=== PATIENT | male | born 1945 | race Caucasian/White ===

== ENCOUNTER → 2017-12-04 00:58 | Outpatient (CLI) | payer MEDICARE, BC, SELFPAY ==
[2017-12-04 11:48] LABS: Prothrombin Time 19.3 sec (9.3-10.8)
== END ==
PROVIDERS: PCP Emergency Medicine; Visit Provider Emergency Medicine
DX: I48.0 Paroxysmal atrial fibrillation (principal); Z79.01 Long term (current) use of anticoagulants
CPT/HCPCS: 36415; 85610

== ENCOUNTER → 2017-12-06 00:44 | Outpatient (CLI) | payer MEDICARE, BC, SELFPAY ==
[2017-12-06 12:06] LABS: Prothrombin Time 22.2 sec (9.3-10.8)
[2017-12-06 12:08] LABS: INR 2.3 (1.0-3.5)
== END ==
PROVIDERS: PCP Emergency Medicine; Visit Provider Emergency Medicine
DX: I48.0 Paroxysmal atrial fibrillation (principal); Z79.01 Long term (current) use of anticoagulants
CPT/HCPCS: 36415; 85610

== ENCOUNTER → 2017-12-06 07:56 | Outpatient (REF) | payer SELFPAY ==
[2017-12-06 08:26] LABS: Abs Immature Grans 0.02 k/cumm (0.0-0.09); Absolute Basophil Count 0.04 k/cumm (0.0-0.2); Absolute Eosinophil Count 0.53 k/cumm (0.0-0.7); Absolute Lymphocyte Count 0.52 k/cumm (1.2-3.4); Absolute Monocyte Count 0.58 k/cumm (0.11-0.7); Absolute Neutrophil Count 5.66 k/cumm (1.2-6.7); Basophils % 0.5; Eosinophils % 7.2; HCT 29.5 % (40.0-50.0); HGB 8.8 g/dL (13.5-17.5); Immature Grans % 0.3; Lymphocytes % 7.1; Mean Corp. HGB Concentration 29.8 g/dL (32.0-36.0); Mean Corpuscular Hemoglobin 29.8 pg (27.0-33.0); Monocytes % 7.9; Platelet Count 234 x1000/uL (130-400); RBC 2.95 m/cumm (4.50-6.00); RBC Distribution Width 17.7 % (11.8-14.1); White Blood Cell Count 7.35 k/cumm (4.4-10.8)
[2017-12-06 08:32] LABS: Anion Gap 8.6 mmol/L (3-11); BUN 37 mg/dL (7-18); CO2 29.4 mmol/L (21.0-32.0); Calcium 7.8 mg/dL (8.5-10.1); Chloride 95 mmol/L (98-107); Estimated GFR 8.43 (mL/min/1.73m2); Glucose 114 mg/dL (70-100); Potassium 4.3 mmol/L (3.5-5.1); Sodium 133 mmol/L (136-145)
[2017-12-06 08:39] LABS: CREATININE 6.51 mg/dL (0.70-1.30)
== END ==
LOC: LBN 07:56
PROVIDERS: PCP Emergency Medicine; Visit Provider Internal Medicine Nephrology
DX: N18.6 End stage renal disease (principal)

== ENCOUNTER → 2017-12-18 03:06 | Outpatient (CLI) | payer MEDICARE, BC, SELFPAY ==
[2017-12-18 12:27] LABS: INR 2.6 (1.0-3.5); Prothrombin Time 24.4 sec (9.3-10.8)
== END ==
PROVIDERS: PCP Emergency Medicine; Visit Provider Emergency Medicine
DX: Z79.01 Long term (current) use of anticoagulants (principal); I25.10 Atherosclerotic heart disease of native coronary artery without angina pectoris
CPT/HCPCS: 36415; 85610

== ENCOUNTER 2018-01-03 11:26 | Emergency (ER) | payer MEDICARE, BC, SELFPAY ==
[2018-01-03 11:47] VITALS: BP 119/51; PULSE 81; RESP 18; TEMP 36.8; O2SAT 95
--- NOTE | 2018-01-03 11:48 | ED.GENADUL_ITS ---
Disposition Clinical Impression: Worried well, Evaluation by medical service required, Dialysis complication, anemia secondary to esrd, Anticoagulant long-term use Disposition: HOME Condition: Good Instructions: Anemia (ED) Additional Instructions: If you notice any worsening of your symptoms, or any new symptoms such as vomiting, diarrhea, fever, chills, dark or tarry stool, bleeding from your rectum or your urine, shortness of breath, chest pain, numbness, weakness, or fainting , please return immediately to the emergency department for reevaluation. Please follow up with your primary care provider as soon as possible for reassessment and reevaluation. As always, it was a pleasure participating in your medical care today. Referrals: Devin Willard DO [Primary Care Provider] - Medical Decision Making - Medical Decision Making This is a 72-year-old male with a past medical history of dialysis, cardiac disease, aortic valve replacement, Coumadin use, has been very resistant to Epogen and has had multiple transfusions throughout his life, the most recent being this past spring. He has also had multiple GI workups on an outpatient basis with no focal etiology for his recurrent anemia. Feel that it is most likely combination of his dialysis with his Coumadin use, as well as his poor bone marrow response. He presents today being sent by his PCP for transfusion. He had a hemoglobin allegedly less than 8, and a soft blood pressure during dialysis. They did give a slight increase in fluids for him. Patient does admit to some fatigue, but denies any other complaints at this time. He is on 2 L of home oxygen at all times, he is currently on this and saturating well. Patient appears clinically well, slightly pale, but no other significant abnormalities. Perform a Hemoccult, recheck his hemoglobin level, and type and cross the patient with transfusion anticipated. 1:16 PM Patient's laboratory workup demonstrates a hemoglobin of 8.9, which is certainly within acceptable limits. Most recent hemoglobin at [facility] upon discharge greater than 2 weeks ago was in the low nines. Around 9.4. This demonstrates no significant abnormality. The patient has been hemodynamically stable here, and has had no hypotension, no tachycardia, no lightheadedness. Bedside fecal occult was performed and shown to be positive however the stool was light brown in color, no evidence of melena. The patient has a clear history of heme positive stools throughout his time here. I see no signs of a significant or notable GI bleed. I discussed the vital signs, laboratory workup , and occult signs with Dr. Willard, and he too feels that the patient does not require any blood at this time. Patient will be discharged home with close follow-up with Dr. Willard. We did discuss red flags which to return immediately, and the patient understands. I have extensively reviewed the treatment plan and discharge instructions with the patient and their family. I have addressed all patient concerns at this time. The patient and family was made aware of what symptoms to monitor for that would warrant a return to the emergency department. Discussed the plan with the patient and family, they demonstrate verbal understanding and agreement with our assessment and plan at this time. History of Present Illness - General Chief complaint: GenMedical Stated complaint: PER DR WILLARD Time Seen by Provider: 01/03/18 11:38 - History of Present Illness Initial comments: This is a very pleasant 72-year-old male with a past medical history of aortic valve replacement, subsequent Coumadin use, and dialysis secondary to renal failure, as well as chronic anemia requiring over 12 transfusions, mostly every 2-3 months, and being historically difficult to crossmatch, pacemaker, cardiac disease. He also has a history of hypoxemia, and resistance to epogen, as well as a thorough workup from gastroenterology at [facility] multiple times most recent being this past spring with multiple colonoscopies and EGDs which is never demonstrated focal location for bleeding. He presents today after being sent by his primary care provider for anemia. Patient states that his hemoglobin was allegedly 8, and while at dialysis today he was noticed to have a soft blood pressure during dialysis which was concerning. They did not give any medication to the patient to artificially raise his blood pressure. Dr. Willard was told that he had a hemoglobin of 8, and so he was sent by his primary care provider Dr. Aleman to the ER for transfusion. The patient has no focal complaints. He does state that he has been slightly fatigued over the last few weeks, but denies any hematochezia, hematemesis, melena, acholic stool. He denies any cuts or bleeding. He states that this is how it always is, a hemoglobin just goes down on its own, and Dr. Aleman feels it is from dialysis. Patient does not have any other complaints at this time. Patient denies any IV or illicit drug use. He denies any pertinent family history. - Related Data Cyanocobalamin (Vitamin B-12) [Cyanocobalamin Injection] 1 ml IM DIRECTED #1 vial 09/08/12 Cinacalcet [Sensipar] 30 mg PO DIRECTED 02/07/16 Iron 18 mg IV INFUSION 02/07/16 Epoetin Howie [Epogen] 20,000 unit IJ given at dialysis vial 11/28/16 Atorvastatin Calcium 40 mg PO DAILY tab-cap 05/17/17 Clopidogrel [Plavix] 75 mg PO DAILY tab-cap 05/17/17 Warfarin Sodium 1 - 3 tab PO DAILY #100 tab-cap 07/31/17 Pantoprazole Sodium 40 mg PO BID #180 tab-cap 11/22/17 Metoprolol Succinate 25 mg PO BID #180 tab-cap 12/20/17 Nitroglycerin [Nitrostat] 1 tab SL PRN #25 tab.sl 12/20/17 Acetaminophen [Tylenol Extra Strength] 500 mg PO TID PRN 12/24/17 Folic Acid 1 mg PO DAILY tab-cap 01/01/18 Carvedilol 6.25 mg PO BID 01/03/18 Allergies Allergy/AdvReac Type Severity Reaction Status Date / Time Penicillins Allergy Unknown Unverified 01/03/18 12:15 Review of Systems Other: 10 point review of systems was performed, pertinent positives and negatives are noted in the history of present illness. Past Medical History - Past Medical History Medical history: AFIB, CAD, CHF, ESRD, GI bleed, hypertension, SVT Surgical history: angioplasty/stent, coronary bypass surgery, vascular surgery ( AV fistula), other (AVR) - Social History Alcohol use: rarely Drug use: none General Exam - Other Other exam information: 1.Const: Well-nourished, Well-developed, appearing stated age 2.Eyes: PERRL, no conjunctival injection, and symmetrical lids. Minimal conjunctival pallor 3.ENT: Atraumatic external nose and ears. Moist MM. Neck: Symmetric, trachea midline, No thyromegaly. 4.CVS: +S1/S2, No murmurs or gallops. Peripheral pulses 2+ and equal in all extremities. Brisk capillary refill in all extremities. Palpable pacemaker in right chest. No signs of infection. 5.RESP: Unlabored respiratory effort. Clear to auscultation bilaterally. No wheezes rales or rhonchi 6.GI: Soft, Nontender/Nondistended, No hepatosplenomegaly. No guarding or rebound. 7.MSK: Normocephalic/Atraumatic, Extremities w/o deformity or ttp No cyanosis or clubbing, Normal movement of all extremities. Palpable thrill noted in left arm fistula. 8.Skin: Warm, Dry. No rashes or lesions. 9.Neuro: filter tank tender helper II-XII grossly intact. Sensation grossly intact, no focal neurologic deficits. 10.Psych: (AAO) x3. Appropriate mood and affect
[2018-01-03 12:18] LABS: Abs Immature Grans 0.01 k/cumm (0.0-0.09); Absolute Basophil Count 0.04 k/cumm (0.0-0.2); Absolute Eosinophil Count 0.31 k/cumm (0.0-0.7); Absolute Lymphocyte Count 0.62 k/cumm (1.2-3.4); Absolute Monocyte Count 0.45 k/cumm (0.11-0.7); Absolute Neutrophil Count 4.18 k/cumm (1.2-6.7); Basophils % 0.7; Eosinophils % 5.5; HCT 31.1 % (40.0-50.0); HGB 8.9 g/dL (13.5-17.5); Immature Grans % 0.2; Lymphocytes % 11.1; Mean Corp. HGB Concentration 28.6 g/dL (32.0-36.0); Mean Corpuscular Hemoglobin 29.5 pg (27.0-33.0); Mean Platelet Volume 10.3 fL (8.0-11.0); Neutrophils % 74.5; Platelet Count 229 x1000/uL (130-400); RBC 3.02 m/cumm (4.50-6.00); RBC Distribution Width 20.8 % (11.8-14.1); White Blood Cell Count 5.61 k/cumm (4.4-10.8)
[2018-01-03 12:32] LABS: ALT 8 U/L (12-78); AST 13 U/L (15-37); Albumin 2.7 g/dL (3.4-5.0); Alkaline Phosphatase 130 U/L (46-116); Anion Gap 3.1 mmol/L (3-11); BUN 11 mg/dL (7-18); Bilirubin, Total 0.5 mg/dL (0.2-1.0); CO2 36.9 mmol/L (21.0-32.0); CREATININE 2.86 mg/dL (0.70-1.30); Calcium 8.2 mg/dL (8.5-10.1); Chloride 95 mmol/L (98-107); Estimated GFR 21.78 (mL/min/1.73m2); Glucose 84 mg/dL (70-100); Potassium 3.4 mmol/L (3.5-5.1); Sodium 135 mmol/L (136-145); Total Protein 7.6 g/dL (6.4-8.2)
[2018-01-03 12:35] LABS: PTT Activated 35.7 sec (21.0-31.4); Prothrombin Time 22.2 sec (9.3-10.8)
[2018-01-03 12:41] LABS: INR 2.3 (1.0-3.5)
[2018-01-03 13:05] VITALS: PULSE 79; RESP 23; O2SAT 97
[2018-01-03 13:10] VITALS: PULSE 78; RESP 25; O2SAT 91
[2018-01-03 13:16] VITALS: BP 124/55; PULSE 78; RESP 16; O2SAT 96
[2018-01-03 13:34] VITALS: TEMP 36.8
== END 2018-01-03 13:29 | disposition home or self-care (01) ==
LOC: ER 01-04 10:14
PROVIDERS: Emergency Provider Student in an Organized Health Care Education/Training Program; PCP Emergency Medicine
DX: T85.691A Other mechanical complication of intraperitoneal dialysis catheter, initial encounter (principal); N18.6 End stage renal disease; D63.1 Anemia in chronic kidney disease; I12.0 Hypertensive chronic kidney disease with stage 5 chronic kidney disease or end stage renal disease; Z99.2 Dependence on renal dialysis; Z71.1 Person with feared health complaint in whom no diagnosis is made; Z79.01 Long term (current) use of anticoagulants; I48.91 Unspecified atrial fibrillation
CPT/HCPCS: 36415; 80053; 86850; 86900; 86901; 99284; 82272; 85025; 85610; 85730

== ENCOUNTER 2018-01-31 08:44 | Outpatient (CLI) | payer MEDICARE, BC, SELFPAY ==
[2018-01-31 12:13] LABS: INR 1.7 (1.0-3.5); Prothrombin Time 16.1 sec (9.3-10.8)
== END 2018-01-31 09:04 ==
PROVIDERS: PCP Emergency Medicine; Visit Provider Emergency Medicine
DX: I25.10 Atherosclerotic heart disease of native coronary artery without angina pectoris (principal); Z95.2 Presence of prosthetic heart valve; Z79.01 Long term (current) use of anticoagulants
CPT/HCPCS: 36415; 85610

== ENCOUNTER 2018-02-07 03:02 | Outpatient (CLI) | payer MEDICARE, BC, SELFPAY ==
[2018-02-07 12:44] LABS: INR 1.5 (1.0-3.5); Prothrombin Time 14.2 sec (9.3-10.8)
== END 2018-02-07 03:22 ==
PROVIDERS: PCP Emergency Medicine; Visit Provider Emergency Medicine
DX: I25.10 Atherosclerotic heart disease of native coronary artery without angina pectoris (principal); Z79.01 Long term (current) use of anticoagulants
CPT/HCPCS: 36415; 85610

== ENCOUNTER 2018-02-14 01:56 | Outpatient (CLI) | payer MEDICARE, BC, SELFPAY ==
[2018-02-14 12:53] LABS: INR 1.5 (1.0-3.5); Prothrombin Time 14.4 sec (9.3-10.8)
== END 2018-02-14 02:16 ==
PROVIDERS: PCP Emergency Medicine; Visit Provider Emergency Medicine
DX: I25.10 Atherosclerotic heart disease of native coronary artery without angina pectoris (principal); Z79.01 Long term (current) use of anticoagulants
CPT/HCPCS: 36415; 85610

== ENCOUNTER 2018-02-21 06:06 | Outpatient (CLI) | payer MEDICARE, BC, SELFPAY ==
[2018-02-21 12:05] LABS: INR 1.8 (1.0-3.5); Prothrombin Time 16.9 sec (9.3-10.8)
== END 2018-02-21 06:26 ==
PROVIDERS: PCP Emergency Medicine; Visit Provider Emergency Medicine
DX: I25.10 Atherosclerotic heart disease of native coronary artery without angina pectoris (principal); I48.0 Paroxysmal atrial fibrillation; Z79.01 Long term (current) use of anticoagulants
CPT/HCPCS: 36415; 85610

== ENCOUNTER 2018-02-28 02:28 | Outpatient (CLI) | payer MEDICARE, BC, SELFPAY ==
[2018-02-28 11:48] LABS: Prothrombin Time 17.7 sec (9.3-10.8)
[2018-02-28 11:52] LABS: INR 1.8 (1.0-3.5)
== END 2018-02-28 02:48 ==
PROVIDERS: PCP Emergency Medicine; Visit Provider Emergency Medicine
DX: Z79.01 Long term (current) use of anticoagulants (principal); I25.10 Atherosclerotic heart disease of native coronary artery without angina pectoris; I48.0 Paroxysmal atrial fibrillation
CPT/HCPCS: 36415; 85610

== ENCOUNTER 2018-03-07 02:07 | Outpatient (CLI) | payer MEDICARE, BC, SELFPAY ==
[2018-03-07 13:21] LABS: INR 2.4 (1.0-3.5); Prothrombin Time 22.5 sec (9.3-10.8)
== END 2018-03-07 02:27 ==
PROVIDERS: PCP Emergency Medicine; Visit Provider Emergency Medicine
DX: I25.10 Atherosclerotic heart disease of native coronary artery without angina pectoris (principal); Z79.01 Long term (current) use of anticoagulants
CPT/HCPCS: 36415; 85610

== ENCOUNTER 2018-03-14 02:31 | Outpatient (CLI) | payer MEDICARE, BC, SELFPAY ==
[2018-03-14 11:51] LABS: Prothrombin Time 29.5 sec (9.3-10.8)
[2018-03-14 11:55] LABS: INR 3.1 (1.0-3.5)
== END 2018-03-14 02:51 ==
PROVIDERS: PCP Emergency Medicine; Visit Provider Emergency Medicine
DX: I25.10 Atherosclerotic heart disease of native coronary artery without angina pectoris (principal); Z79.01 Long term (current) use of anticoagulants
CPT/HCPCS: 36415; 85610

== ENCOUNTER 2018-03-21 02:17 | Outpatient (CLI) | payer MEDICARE, BC, SELFPAY ==
[2018-03-21 08:45] LABS: HGB 8.4 g/dL (13.5-17.5)
[2018-03-21 12:03] LABS: INR 2.4 (1.0-3.5); Prothrombin Time 22.8 sec (9.3-10.8)
== END 2018-03-21 02:37 ==
PROVIDERS: PCP Emergency Medicine; Visit Provider Emergency Medicine
DX: I25.10 Atherosclerotic heart disease of native coronary artery without angina pectoris (principal); Z79.01 Long term (current) use of anticoagulants; D64.9 Anemia, unspecified
CPT/HCPCS: 36415; 85018; 85610

== ENCOUNTER 2018-03-28 01:15 | Outpatient (CLI) | payer MEDICARE, BC, SELFPAY ==
[2018-03-28 12:39] LABS: INR 2.7 (1.0-3.5); Prothrombin Time 25.3 sec (9.3-10.8)
== END 2018-03-28 01:35 ==
PROVIDERS: PCP Emergency Medicine; Visit Provider Emergency Medicine
DX: Z79.01 Long term (current) use of anticoagulants (principal); I25.10 Atherosclerotic heart disease of native coronary artery without angina pectoris
CPT/HCPCS: 36415; 85610

== ENCOUNTER 2018-04-04 00:59 | Outpatient (CLI) | payer MEDICARE, BC, SELFPAY ==
[2018-04-04 12:49] LABS: INR 2.7 (1.0-3.5); Prothrombin Time 25.1 sec (9.3-10.8)
== END 2018-04-04 01:19 ==
PROVIDERS: PCP Emergency Medicine; Visit Provider Emergency Medicine
DX: Z79.01 Long term (current) use of anticoagulants (principal); I25.10 Atherosclerotic heart disease of native coronary artery without angina pectoris
CPT/HCPCS: 36415; 85610

== ENCOUNTER 2018-04-11 02:27 | Outpatient (CLI) | payer MEDICARE, BC, SELFPAY ==
[2018-04-11 12:28] LABS: INR 2.5 (1.0-3.5); Prothrombin Time 23.5 sec (9.3-10.8)
== END 2018-04-11 02:47 ==
PROVIDERS: PCP Emergency Medicine; Visit Provider Emergency Medicine
DX: Z79.01 Long term (current) use of anticoagulants (principal); I25.10 Atherosclerotic heart disease of native coronary artery without angina pectoris
CPT/HCPCS: 36415; 85610

== ENCOUNTER 2018-04-18 11:33 | Outpatient (CLI) | payer MEDICARE, BC, SELFPAY ==
[2018-04-18 12:47] LABS: INR 2.3 (1.0-3.5)
== END 2018-04-18 11:53 ==
PROVIDERS: PCP Emergency Medicine; Visit Provider Emergency Medicine
DX: I25.10 Atherosclerotic heart disease of native coronary artery without angina pectoris (principal); Z79.01 Long term (current) use of anticoagulants
CPT/HCPCS: 36415; 85610

== ENCOUNTER 2018-04-25 02:10 | Outpatient (CLI) | payer MEDICARE, BC, SELFPAY ==
[2018-04-25 12:40] LABS: INR 2.7 (1.0-3.5); Prothrombin Time 27.4 sec (9.3-11.0)
== END 2018-04-25 02:30 ==
PROVIDERS: PCP Emergency Medicine; Visit Provider Emergency Medicine
DX: I25.10 Atherosclerotic heart disease of native coronary artery without angina pectoris (principal); Z79.01 Long term (current) use of anticoagulants
CPT/HCPCS: 36415; 85610

== ENCOUNTER 2018-05-02 02:14 | Outpatient (CLI) | payer MEDICARE, BC, SELFPAY ==
[2018-05-02 12:54] LABS: INR 3.2 (1.0-3.5); Prothrombin Time 32.2 sec (9.3-11.0)
== END 2018-05-02 02:34 ==
PROVIDERS: PCP Emergency Medicine; Visit Provider Emergency Medicine
DX: I25.10 Atherosclerotic heart disease of native coronary artery without angina pectoris (principal); Z95.2 Presence of prosthetic heart valve; Z79.01 Long term (current) use of anticoagulants
CPT/HCPCS: 36415; 85610

== ENCOUNTER 2018-05-09 02:24 | Outpatient (CLI) | payer MEDICARE, BC, SELFPAY ==
[2018-05-09 12:32] LABS: INR 2.5 (0.9-1.1); Prothrombin Time 25.6 sec (9.3-11.0)
== END 2018-05-09 02:44 ==
PROVIDERS: PCP Emergency Medicine; Visit Provider Emergency Medicine
DX: I25.10 Atherosclerotic heart disease of native coronary artery without angina pectoris (principal); Z79.01 Long term (current) use of anticoagulants
CPT/HCPCS: 36415; 85610

== ENCOUNTER 2018-05-16 11:44 | Outpatient (CLI) | payer MEDICARE, BC, SELFPAY ==
[2018-05-16 12:18] LABS: INR 3.2 (0.9-1.1); Prothrombin Time 31.9 sec (9.3-11.0)
== END 2018-05-16 12:04 ==
PROVIDERS: PCP Emergency Medicine; Visit Provider Emergency Medicine
DX: I25.10 Atherosclerotic heart disease of native coronary artery without angina pectoris (principal); Z79.01 Long term (current) use of anticoagulants
CPT/HCPCS: 36415; 85610

== ENCOUNTER 2018-05-23 12:20 | Emergency (ER) | payer MEDICARE, BC, SELFPAY ==
[2018-05-23 12:35] VITALS: BP 122/64; PULSE 96; RESP 18; TEMP 36.6; O2SAT 95
[2018-05-23 12:47] LABS: Abs Immature Grans 0.01 k/cumm (0.0-0.09); Absolute Basophil Count 0.04 k/cumm (0.0-0.2); Absolute Eosinophil Count 0.46 k/cumm (0.0-0.7); Absolute Lymphocyte Count 0.54 k/cumm (1.2-3.4); Absolute Monocyte Count 0.55 k/cumm (0.11-0.7); Absolute Neutrophil Count 3.92 k/cumm (1.2-6.7); Basophils % 0.7; Eosinophils % 8.3; HCT 35.5 % (40.0-50.0); HGB 10.8 g/dL (13.5-17.5); Immature Grans % 0.2; Lymphocytes % 9.8; Mean Corp. HGB Concentration 30.4 g/dL (32.0-36.0); Mean Corpuscular Hemoglobin 34.3 pg (27.0-33.0); Mean Corpuscular Volume 112.7 fL (80-95); Mean Platelet Volume 10.2 fL (8.0-11.0); Platelet Count 190 x1000/uL (130-400); RBC 3.15 m/cumm (4.50-6.00); RBC Distribution Width 17.3 % (11.8-14.1); White Blood Cell Count 5.52 k/cumm (4.4-10.8)
--- NOTE | 2018-05-23 12:48 | NUR.NOTE ---
Nursing Note: On arrival EDITOR IN CHIEF Kelly and DAVID Roy held pressure fo rover 10 minutes and applied pressure dressing, EDITOR IN CHIEF removed pressure dressing, no bleeding noted.
[2018-05-23 13:03] LABS: Anisocytosis 2+; Diff Comment RBC Morph Reviewed; Hypochromasia 1+; INR 2.7 (0.9-1.1); Macrocytosis 3+; Ovalocytes 2+; Polychromasia Present; Prothrombin Time 26.8 sec (9.3-11.0)
--- NOTE | 2018-05-23 13:17 | ED.GENADUL_ITS ---
Discharge Plan Disposition Patient Disposition: HOME Condition: Improving Discharge Details Chief Complaint: GenMedical Clinical Impression: Hemorrhage of arteriovenous fistula, anemia secondary to esrd, Anticoagulated on warfarin Primary Care Provider: Devin Willard ED Provider: Claude Mendoza Home Meds and New Rx's Prescriptions: Continued metoprolol succinate 25 mg tablet extended release 24 hr 12.5 mg PO DAILY RF: 0 cyanocobalamin (vitamin B-12) 1,000 MCG/1 ML solution 1 ml IM DIRECTED Qty: 1 RF: 0 iron 18 MG tablet 18 mg IV INFUSION RF: 0 Sensipar 30 MG tablet 30 mg PO DIRECTED RF: 0 Epogen 20,000 UNIT/1 ML solution 20,000 unit IJ given at dialysis RF: 0 atorvastatin 40 MG tablet 40 mg PO DAILY RF: 0 clopidogrel [Plavix] 75 MG tablet 75 mg PO DAILY RF: 0 warfarin 2.5 MG tablet 1 - 3 tab PO DAILY Qty: 100 RF: 4 pantoprazole 40 MG tablet,delayed release (DR/EC) 40 mg PO BID Qty: 180 RF: 3 acetaminophen [Tylenol Extra Strength] 500 MG tablet 500 mg PO TID PRN RF: 0 folic acid 1 MG tablet 1 mg PO DAILY RF: 0 atorvastatin 40 mg Tablet 40 mg PO DAILY RF: 0 carvedilol 6.25 mg Tablet 6.25 mg PO BID RF: 0 folic acid 1 mg Tablet 1 mg PO DAILY RF: 0 carvedilol 6.25 MG tablet 6.25 mg PO BID RF: 0 Discharge Instructions Instructions: Safe Use of Anticoagulants (ED), Blood Thinners (ED) Additional Instructions: Return to the emergency department for any new or significant worsening of symptoms including new bleeding, redness around the site, significant swelling of the arm. Otherwise follow-up with your primary care provider as needed. Referrals: Devin Willard, DO [Primary Care Provider] - (As needed) Discharge Data Discharge Date/Time-TO BE ENTERED AT DEPARTURE: 05/23/18 13:27 Medical Decision Making Left bleeding fistula after dialysis, on warfarin, bleeding noted on physical exam from arterial source but is slightly spurting. No obvious hematoma formation, still palpable thrill, normal distal extremity examination. Pressure was placed via Zacarias wrap and CBC and INR ordered due to patient being on Coumadin. Pending lab results Zacarias wrap was removed and no further bleeding. Patient states that he has had this happen multiple times as he has had diagnosis of significant arterial pressure in his fistula and it is common for him to have bleeding post dialysis. CBC reviewed and is at patient's baseline with no significant reduction of platelets, no change in chronic anemia. INR shows 2.7. Given baseline labs is within expected limits INR and no further bleeding I feel the patient can be safely discharged. Patient was encouraged to return for any new or worsening symptoms otherwise to follow-up with primary care as needed. HPI General Mode of arrival: wheelchair . Date/Time Provider Initiated Documentation: 05/23/18 12:24 . Limitations to Documentation: no limitations . Information obtained by: patient and RN notes reviewed . History of Present Illness 73 year old M presents to the emergency department with the chief complaint of Bleeding fistula, described as similar to prior episodes, Quality is described as other (Denies pain or disc), and is localized to the left and upper extremity. Patient started experiencing this minute(s) (30) and it has been constant. Other factors that worsen symptoms (Recent dialysis) . Patient notes no other symptoms.. Patient did receive the following treatments prior to arrival, none Related Data Home Medications Medication Instructions Recorded Confirmed cyanocobalamin (vitamin B-12) 1 ml IM DIRECTED #1 vial 09/08/12 05/23/18 Sensipar 30 mg PO DIRECTED 02/07/16 05/23/18 iron 18 mg IV INFUSION 02/07/16 05/23/18 Epogen 20,000 unit IJ given at dialysis 11/28/16 05/23/18 vial atorvastatin 40 mg PO DAILY tab-cap 05/17/17 05/23/18 clopidogrel [Plavix] 75 mg PO DAILY tab-cap 05/17/17 05/23/18 warfarin 1 - 3 tab PO DAILY #100 tab-cap 07/31/17 05/23/18 pantoprazole 40 mg PO BID #180 tab-cap 11/22/17 05/23/18 acetaminophen [Tylenol Extra 500 mg PO TID PRN 12/24/17 05/23/18 Strength] folic acid 1 mg PO DAILY tab-cap 01/01/18 05/23/18 carvedilol 6.25 mg PO BID 01/03/18 05/23/18 metoprolol succinate ER 25 mg 12.5 mg PO DAILY tab 04/22/18 05/23/18 tablet,extended release 24 hr atorvastatin 40 mg PO DAILY 05/23/18 05/23/18 carvedilol 6.25 mg PO BID 05/23/18 05/23/18 folic acid 1 mg PO DAILY 05/23/18 05/23/18 Previous Rx's Medication Instructions Recorded warfarin 1 - 3 tab PO DAILY #100 tab-cap 07/31/17 pantoprazole 40 mg PO BID #180 tab-cap 11/22/17 Allergies Allergy/AdvReac Type Severity Reaction Status Date / Time Penicillins Allergy Unknown Verified 04/22/18 13:28 General Stated Complaint: GenMedical YOVANI: 3 Review of Systems Constitutional Denies body ache(s), Denies chills and Denies fever(s) Cardiovascular Denies chest pain and Denies dyspnea Respiratory Denies dyspnea Gastrointestinal Denies abdominal pain, Denies nausea and Denies vomiting Integumentary/Breasts Denies rash Neurologic Denies confusion and Denies sensory deficit Psychiatric Denies confusion Hematologic/Lymphatic Reports as per HPI and Denies easy bruising [facility] Medical History Anticoagulated on warfarin (Acute) Renal failure syndrome (Acute 01/09/12) Postherpetic neuralgia (Acute) Overweight (Acute) Microscopic hematuria (Acute 04/04/99) Essential hypertension (Acute 04/13/13) Diastasis recti (Acute 12/15/13) Chronic renal failure syndrome (Acute 02/15/12) Cardiac arrest (Acute 11/05/17) Atrial fibrillation (Acute) Atherosclerosis of coronary artery bypass graft (Acute 04/04/01) Aortic aneurysm (Acute) Anemia due to vitamin B12 deficiency (Acute 11/11/12) Actinic keratosis (Acute) ESRD (end stage renal disease) (Acute 10/25/14) Anticoagulant long-term use (Chronic) CHF (congestive heart failure) (Chronic) 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) PAF (paroxysmal atrial fibrillation) (Chronic) Surgical History Metallic aortic valve replacement during current hospitalization (Acute 12/15/13) S/P AVR (aortic valve replacement) (Chronic) H/O surgical procedure (Chronic) Cholecystectomy Stent placement (~2001) Social History Smoking/Tobacco Use Status: Former Tobacco Use passive smoking exposure: No Exam Const General: cooperative, no acute distress and not ill appearing Orientation: alert, awake and oriented x3 HENMT Mouth: moist mucous membranes Resp Effort & Inspection: normal respiratory effort, able to speak in complete sentences and no respiratory distress Cardio Rate: regular rate Rhythm: regular rhythm Skin General skin exam: no rashes or lesions noted Neuro General: alert, awake, oriented x3, moves all extremities and no focal motor deficits Sensory Exam: no sensory deficits noted Extrem Left upper extremity: full ROM, normal capillary refill and shoulder/upper arm Details: other (Bleeding from superior fistula, bleeding is pulsatile oozing. No significant lac); no cyanosis and no edema Course Vital Signs Temperature 36.6 C 05/23/18 12:35 Pulse 96 H 05/23/18 12:35 Respiratory Rate 18 05/23/18 12:35 Blood Pressure 122/64 05/23/18 12:35 Pulse Oximetry 95 05/23/18 12:35 Temperature 36.6 C 05/23/18 12:35 Temperature Source Temporal Artery Scan 05/23/18 12:35 Pulse 96 H 05/23/18 12:35 Respiratory Rate 18 05/23/18 12:35 Respiratory Effort 05/23/18 12:41 Blood Pressure 122/64 05/23/18 12:35 Blood Pressure Position Sitting 05/23/18 12:35 Pulse Oximetry 95 05/23/18 12:35 Oxygen Delivery Method Nasal Cannula 05/23/18 12:35 Oxygen Flow Rate 2 05/23/18 12:35 Pain Level 0 05/23/18 12:35 Comment 05/23/18 12:35 Lab/Test Results Lab/Test Results: Laboratory Tests Range/Units 05/23/18 05/23/18 12:40 12:40 WBC (4.4-10.8) k/cumm 5.52 RBC (4.50-6.00) m/cumm 3.15 L Hgb (13.5-17.5) g/dL 10.8 L Hct (40.0-50.0) % 35.5 L MCV (80-95) fL 112.7 H MCH (27.0-33.0) pg 34.3 H MCHC (32.0-36.0) g/dL 30.4 L RDW (11.8-14.1) % 17.3 H Plt Count (130-400) x1000/uL 190 MPV (8.0-11.0) fL 10.2 Immature Gran % 0.2 Neutrophils % 71.0 Lymphocytes % 9.8 Monocytes % 10.0 Eosinophils % 8.3 Basophils % 0.7 Absolute Neutrophils (1.2-6.7) k/cumm 3.92 Absolute Lymphocytes (1.2-3.4) k/cumm 0.54 L Absolute Monocytes (0.11-0.7) k/cumm 0.55 Absolute Eosinophils (0.0-0.7) k/cumm 0.46 Absolute Basophils (0.0-0.2) k/cumm 0.04 Differential Comment Rbc morph reviewed RBC Morphology See below Polychromasia Present Hypochromasia 1+ Anisocytosis 2+ Macrocytosis 3+ Ovalocytes 2+ PT (9.3-11.0) sec 26.8 H INR (0.9-1.1) 2.7 H
== END 2018-05-23 13:27 | disposition home or self-care (01) ==
PROVIDERS: Emergency Provider Nurse Practitioner Family; PCP Emergency Medicine
DX: T82.590A Other mechanical complication of surgically created arteriovenous fistula, initial encounter (principal); D63.1 Anemia in chronic kidney disease; N18.6 End stage renal disease; Z79.01 Long term (current) use of anticoagulants
CPT/HCPCS: 36415; 99283; 85025; 85610

== ENCOUNTER 2018-05-30 01:10 | Outpatient (CLI) | payer MEDICARE, BC, SELFPAY ==
[2018-05-30 12:49] LABS: INR 3.3 (0.9-1.1); Prothrombin Time 32.9 sec (9.3-11.0)
== END 2018-05-30 01:30 ==
PROVIDERS: PCP Emergency Medicine; Visit Provider Emergency Medicine
DX: I25.10 Atherosclerotic heart disease of native coronary artery without angina pectoris (principal); Z79.01 Long term (current) use of anticoagulants
CPT/HCPCS: 36415; 85610

== ENCOUNTER 2018-06-06 00:50 | Outpatient (CLI) | payer MEDICARE, BC, SELFPAY ==
[2018-06-06 12:25] LABS: INR 2.9 (0.9-1.1)
== END 2018-06-06 01:10 ==
PROVIDERS: PCP Emergency Medicine; Visit Provider Emergency Medicine
DX: I25.10 Atherosclerotic heart disease of native coronary artery without angina pectoris (principal); Z79.01 Long term (current) use of anticoagulants
CPT/HCPCS: 36415; 85610

== ENCOUNTER 2018-06-20 02:28 | Outpatient (CLI) | payer MEDICARE, BC, SELFPAY ==
[2018-06-20 12:57] LABS: INR 4.2 (0.9-1.1)
== END 2018-06-20 02:48 ==
PROVIDERS: PCP Emergency Medicine; Visit Provider Emergency Medicine
DX: I25.10 Atherosclerotic heart disease of native coronary artery without angina pectoris (principal); Z79.01 Long term (current) use of anticoagulants
CPT/HCPCS: 36415; 85610

== ENCOUNTER 2018-06-27 08:26 | Outpatient (CLI) | payer MEDICARE, BC, SELFPAY | END 2018-06-27 08:46 | PROVIDERS: PCP Emergency Medicine; Visit Provider Emergency Medicine | DX: I25.10 Atherosclerotic heart disease of native coronary artery without angina pectoris (principal); Z79.01 Long term (current) use of anticoagulants | CPT/HCPCS: 36415; 85610 ==

== ENCOUNTER 2018-06-29 19:40 | Emergency (ER) | payer MEDICARE, BC, SELFPAY ==
[2018-06-29] VITALS (28 sets, daily range): BP systolic 114–126; BP diastolic 56–67; PULSE 86–96; RESP 2–29; TEMP 37.1; O2SAT 89–100
--- NOTE | 2018-06-29 19:59 | W.ED.GENAD ---
Discharge Plan Disposition Patient Disposition: [facility] Condition: Stable Discharge Details Chief Complaint: RespSymp Clinical Impression: RLL pneumonia, Influenza Reason For Visit: COUGH Primary Care Provider: Devin Willard ED Provider: Jose L Damian Home Meds and New Rx's Prescriptions: No Action metoprolol succinate 25 mg tablet extended release 24 hr 12.5 mg PO DAILY RF: 0 cyanocobalamin (vitamin B-12) 1,000 MCG/1 ML solution 1 ml IM DIRECTED Qty: 1 RF: 0 iron 18 MG tablet 18 mg IV INFUSION RF: 0 Sensipar 30 MG tablet 30 mg PO DIRECTED RF: 0 Epogen 20,000 UNIT/1 ML solution 20,000 unit IJ given at dialysis RF: 0 pantoprazole 40 MG tablet,delayed release (DR/EC) 40 mg PO BID Qty: 180 RF: 3 acetaminophen [Tylenol Extra Strength] 500 MG tablet 500 mg PO TID PRN RF: 0 clopidogrel [Plavix] 75 mg tablet 75 mg PO DAILY Qty: 90 RF: 3 atorvastatin 40 mg tablet 40 mg PO DAILY Qty: 90 RF: 3 warfarin 2.5 mg tablet 2.5 - 7.5 mg PO DAILY Qty: 100 RF: 6 folic acid 1 mg Tablet 1 mg PO DAILY RF: 0 carvedilol 6.25 MG tablet 6.25 mg PO BID RF: 0 Discharge Data Discharge Date/Time-TO BE ENTERED AT DEPARTURE: 06/30/18 14:22 Medical Decision Making <Rickey Larson MD - Last Filed: 07/02/18 16:05> Patient is afebrile here. Oxygenation on 2 L which is his chronic setting is fine. He does have wheezing in the bases and some scattered rhonchi. Has good air exchange in the upper lung duncan. He is not experiencing any chest pain or pressure. He does not look toxic. Will obtain basic labs. Will get a chest x-ray and a flu swab. He is due for dialysis tomorrow. We will not give a fluid bolus or anything at this point. We will give a DuoNeb to see if this helps with his chest congestion and wheezing. 22:00 - Patient's white count is normal. He is due for dialysis tomorrow and his potassium and creatinine are little elevated but not significantly so. Potassium is 5.4. His INR is a little high at 4.5. He is having no bleeding currently. His flu swab is positive for influenza A. His chest x-ray shows some haziness in the left lower lobe consistent with infiltrate. He is tachypneic. He is not febrile, tachycardic or hypotensive. Breathing treatment did help and he seems to be more open with increased wheezing. By both pneumonia severity index as well as curb 65 if we presume this infiltrate is community-acquired pneumonia and not influenza related he has a mortality rate that puts him 7-9%. I will treat with Tamiflu and Levaquin for now. Should probably admit and I will discuss with [facility] first as this is where his dialysis is based out of. 01:30 - Patient has received Tamiflu and Levaquin. He continues to have stable vital signs. His case is discussed with hospitalist at [facility], Dr. Taylor as well as hospitalist at [facility] Dr. Driver. Patient is on list for transfer as soon as bed available. Case discussed with hospitalist here, Dr. Lynn. He is not comfortable admitting a dialysis patient there is no guarantee of transfer. Patient being held in ED here. Unable to transfer at this time anyways because of road conditions. Will discuss with [facility] once again regarding transfer in the morning to the ED so that he is present at facility where dialysis is available if needed. 07:00 -[facility] would not accept patient to ED as they are already holding borders. He has remained here in the ED with no changes. He is written for morning medications. Will sign out to oncoming physician and reach out to [facility] and [facility] later this morning to inquire on bed availability. Medical Records Medical records reviewed: Yes I reviewed the patient's medical records. Lab Data Lab results reviewed: Yes I reviewed the patient's lab results. <Jose L Damian MD - Last Filed: 06/30/18 13:23> Received signout from Dr. Larson. Please see his note regarding details of the patient's presentation and management. Patient remained comfortable in the emergency department, he was accepted to transfer to [facility] on the service of Dr. Segal. A repeat potassium was obtained after the overnight hours at 6.1 without acute EKG changes. Given kayexalate 15g PO. Patient stable for transfer to appropriate inpatient setting. ECG Data Attestation: I personally reviewed and interpreted this ECG (s) as follows: Prior ECG tracings: available for review Interpretation: Normal sinus rhythm with a first-degree AV block, there is intraventricular conduction delay, T wave inversions in leads I, aVL, and nonspecific half to [address] depression in V5 and V6. These findings are unchanged versus comparison November 2017 HPI <Rickey Larson MD - Last Filed: 07/02/18 16:05> General Mode of arrival: ambulatory. Date/Time Provider Initiated Documentation: 06/29/18 19:46. Limitations to Documentation: no limitations. Information obtained by: patient and old records reviewed. HPI Narrative: Patient presents to ED with complaints of cough, chest congestion, malaise. This started about a week ago with a head cold and nasal congestion only. Over the last couple of days he has developed chest symptoms with congestion and cough. He is unable to bring anything up with it. He is on chronic oxygen and does not feel any more short of breath than usual. He has had no chest pain or back pain. He has had no fever that he is aware of. He did have shaking chills today. He has nausea but no vomiting. He has mild body aches. He did not have a flu shot. He is a dialysis patient and received dialysis on Saturday. He is concerned because a few patients at the dialysis center have been diagnosed with pneumonia. He just wants to make sure that he does not have any significant issue. He does have multiple medical problems beyond dialysis which includes anticoagulation with Coumadin for aortic valve replacement. Related Data Home Medications Medication Instructions Recorded Confirmed cyanocobalamin (vitamin B-12) 1 ml IM DIRECTED #1 vial 09/08/12 06/29/18 Sensipar 30 mg PO DIRECTED 02/07/16 06/29/18 iron 18 mg IV INFUSION 02/07/16 06/29/18 Epogen 20,000 unit IJ given at dialysis 11/28/16 06/29/18 vial pantoprazole 40 mg PO BID #180 tab-cap 11/22/17 06/29/18 acetaminophen [Tylenol Extra 500 mg PO TID PRN 12/24/17 06/29/18 Strength] carvedilol 6.25 mg PO BID 01/03/18 06/29/18 metoprolol succinate ER 25 mg 12.5 mg PO DAILY tab 04/22/18 06/29/18 tablet,extended release 24 hr folic acid 1 mg PO DAILY 05/23/18 06/29/18 clopidogrel 75 mg tablet 75 mg PO DAILY #90 tab-cap 05/28/18 06/29/18 atorvastatin 40 mg tablet 40 mg PO DAILY #90 tab-cap 06/04/18 06/29/18 warfarin 2.5 mg tablet 2.5 - 7.5 mg PO DAILY #100 tab-cap 06/25/18 06/29/18 Previous Rx's Medication Instructions Recorded pantoprazole 40 mg PO BID #180 tab-cap 11/22/17 clopidogrel 75 mg tablet 75 mg PO DAILY #90 tab-cap 05/28/18 atorvastatin 40 mg tablet 40 mg PO DAILY #90 tab-cap 06/04/18 warfarin 2.5 mg tablet 2.5 - 7.5 mg PO DAILY #100 tab-cap 06/25/18 Allergies Allergy/AdvReac Type Severity Reaction Status Date / Time Penicillins Allergy Unknown Verified 06/29/18 19:54 General Stated Complaint: RespSymp YOVANI: 3 Review of Systems <Rickey Larson MD - Last Filed: 07/02/18 16:05> Constitutional Reports body ache(s), Reports chills, Reports fatigue, Denies fever(s), Denies headache(s), Denies lethargy, Reports malaise, Reports poor appetite and Reports weakness Eyes Denies change in vision, Denies eye discharge and Denies eye pain ENT Denies vertigo, Denies otalgia, Denies facial pain, Denies headache(s), Reports nasal congestion, Denies neck pain and Denies sore throat Cardiovascular Denies chest pain, Denies diaphoresis, Denies syncope, Reports edema, Denies palpitations and Denies dyspnea Respiratory Reports change in phlegm color, Reports chest congestion, Reports cough and Denies dyspnea Gastrointestinal Denies abdominal pain, Denies diarrhea, Reports nausea and Denies vomiting Genitourinary Comments: dialysis patient; makes essentially no urine Musculoskeletal Denies back pain, Reports myalgias, Denies arthralgias, Denies neck pain and Denies numbness Integumentary/Breasts Denies rash Neurologic Denies confusion, Denies vertigo, Denies syncope, Denies headache(s), Denies focal weakness, Denies numbness and Reports weakness Psychiatric Denies confusion Endocrine Reports fatigue and Denies palpitations PFSH <Rickey Larson MD - Last Filed: 07/02/18 16:05> Medical History Anticoagulated on warfarin (Acute) Renal failure syndrome (Acute 01/09/12) Postherpetic neuralgia (Acute) Overweight (Acute) Microscopic hematuria (Acute 04/04/99) Essential hypertension (Acute 04/13/13) Diastasis recti (Acute 12/15/13) Chronic renal failure syndrome (Acute 02/15/12) Cardiac arrest (Acute 11/05/17) Atrial fibrillation (Acute) Atherosclerosis of coronary artery bypass graft (Acute 04/04/01) Aortic aneurysm (Acute) Anemia due to vitamin B12 deficiency (Acute 11/11/12) Actinic keratosis (Acute) ESRD (end stage renal disease) (Acute 10/25/14) Anticoagulant long-term use (Chronic) CHF (congestive heart failure) (Chronic) 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) PAF (paroxysmal atrial fibrillation) (Chronic) Surgical History Metallic aortic valve replacement during current hospitalization (Acute 12/15/13) S/P AVR (aortic valve replacement) (Chronic) H/O surgical procedure (Chronic) Cholecystectomy Stent placement (~2001) Social History Smoking and Tabacco status: Former Tobacco Use Pasive smoking exposure: No Exam <Rickey Larosn MD - Last Filed: 07/02/18 16:05> Const General: cooperative, comfortable and no acute distress Orientation: alert and oriented x3 [facility] Head: normocephalic and atraumatic Face and sinus: normal facial exam Neck Neck: normal visual inspection, trachea midline, supple and no JVD Resp Effort & Inspection: normal respiratory effort Auscultation: no rales, rhonchi (scattered) and wheezes lower bilaterally Cardio Rate: regular rate Rhythm: regular rhythm Heart Sounds: S1 normal, S2 normal, click and murmur GI Palpation: soft, not firm and nontender Skin Rashes: no rashes Neuro General: alert, oriented x3, no focal motor deficits and CN's II-XI intact bilaterally Cognition: normal cognition Speech: speech normal Sensory Exam: no sensory deficits noted Extrem General: edema (LE 2-3 +) Laterality: bilateral Course <Rickey Larson MD - Last Filed: 07/02/18 16:05> Vital Signs Temperature 98.8 F 06/29/18 19:49 Pulse 94 H 06/29/18 19:49 Respiratory Rate 24 06/29/18 19:49 Blood Pressure 117/63 06/29/18 19:49 Pulse Oximetry 97 06/29/18 19:49 Temperature 98.8 F 06/29/18 19:49 Temperature Source Temporal Artery Scan 06/29/18 19:49 Pulse 94 H 06/29/18 19:49 Respiratory Rate 24 06/29/18 19:49 Respiratory Effort 06/29/18 19:49 Blood Pressure 117/63 06/29/18 19:49 Blood Pressure Position Sitting 06/29/18 19:49 Pulse Oximetry 97 06/29/18 19:49 Oxygen Delivery Method Nasal Cannula 06/29/18 19:49 Oxygen Flow Rate 2 06/29/18 19:49 Sign Out <Rickey Larson MD - Last Filed: 07/02/18 16:05> Sign Out Data: Sign Out Comment: Patient remains stable waiting for acceptance to [facility] or [facility] for admission/dialysis. Last updated by Rickey Larson MD at 06/30/18 07:36
--- NOTE | 2018-06-29 20:13 | DI.RAD_ITS ---
SYMPTOMS/DIAGNOSIS: COUGH, SHORTNESS OF BREATH PA AND LATERAL CHEST: Comparison is made with [id number]. The heart is enlarged. A pacemaker, sternal wires and aortic valve prosthesis are again noted. There are underlying fibrotic changes. There is stable mild blunting at the right costophrenic angle. The findings may be chronic or could represent a tiny effusion and mild pulmonary edema. There is also a question of patchy density in the left lower lobe which could represent a superimposed pneumonia. IMPRESSION: Underlying fibrotic changes and cardiomegaly. Question of a left lower lobe pneumonia.
[2018-06-29] MEDS: Albuterol/Ipratropium 3 ML UPD VIAL UPD (20:42)
[2018-06-29 20:44] LABS: Abs Immature Grans 0.01 k/cumm (0.0-0.09); Absolute Basophil Count 0.03 k/cumm (0.0-0.2); Absolute Eosinophil Count 0.06 k/cumm (0.0-0.7); Absolute Lymphocyte Count 0.49 k/cumm (1.2-3.4); Absolute Monocyte Count 0.84 k/cumm (0.11-0.7); Absolute Neutrophil Count 3.68 k/cumm (1.2-6.7); Basophils % 0.6; Eosinophils % 1.2; HCT 32.4 % (40.0-50.0); Immature Grans % 0.2; Lymphocytes % 9.6; Mean Corp. HGB Concentration 30.9 g/dL (32.0-36.0); Mean Corpuscular Hemoglobin 34.2 pg (27.0-33.0); Mean Platelet Volume 9.8 fL (8.0-11.0); Monocytes % 16.4; Platelet Count 159 x1000/uL (130-400); RBC 2.92 m/cumm (4.50-6.00); RBC Distribution Width 18.3 % (11.8-14.1); White Blood Cell Count 5.11 k/cumm (4.4-10.8)
[2018-06-29 20:54] LABS: Anion Gap 8.7 mmol/L (3-11); BUN 44 mg/dL (7-18); CO2 31.3 mmol/L (21.0-32.0); Calcium 7.4 mg/dL (8.5-10.1); Chloride 94 mmol/L (98-107); Estimated GFR 6.72 (mL/min/1.73m2); Glucose 97 mg/dL (70-100); Potassium 5.4 mmol/L (3.5-5.1); Sodium 134 mmol/L (136-145)
[2018-06-29 20:56] LABS: CREATININE 7.91 mg/dL (0.70-1.30)
--- NOTE | 2018-06-29 21:06 | DI.VRAD_ITS ---
EXAM: XR Chest, 2 Views EXAM DATE/TIME: 06/29/2018 8:15 PM CLINICAL HISTORY: 73 years old, male; Signs and symptoms; Cough and shortness of breath; Cough with hemorrhage; Patient HX: Cough x 2 days TECHNIQUE: XR of the chest, 2 views. COMPARISON: CR CHEST 2 VIEWS PA,LAT 11/29/2017 3:33 PM FINDINGS: Lungs: Minimal patchy densities within the left lower lobe suspicious for pneumonia in the proper clinical setting. Pleural space: No pleural effusion or pneumothorax. Heart/Mediastinum: Status post aortic valve replacement. Mild cardiomegaly. Bones/joints: Unremarkable. Other findings: IACD, unchanged. IMPRESSION: Findings suspicious for left lower lobe pneumonia. Dictated and Authenticated by: Rickie Ceja MD. Ordering:MARILIA Lang MD
[2018-06-29 21:08] LABS: Prothrombin Time 45.6 sec (9.3-11.0)
[2018-06-29 21:11] LABS: INR 4.5 (0.9-1.1)
[2018-06-29] MEDS: LEVOFLOXACIN 750 MG/150 ML BAG 100 MG IVPB (22:14)
[2018-06-29] MEDS: Oseltamivir 30 MG CAP PO (22:14)
[2018-06-29 22:15] LABS: Lactate-non-spesis 1.6 mmol/l (0.6-1.4)
[2018-06-29] MEDS: Albuterol 2.5 MG/3 ML INH SOLN VIAL UPD (23:24)
--- NOTE | 2018-06-29 23:47 | NUR.NOTE ---
Nursing Note: patient restiing at present no complaints, coughing productively. oxygen at 2l/nc continues
[2018-06-30] VITALS (67 sets, daily range): BP systolic 99–127; BP diastolic 47–67; PULSE 67–91; RESP 12–31; TEMP 37.1; O2SAT 88–99
--- NOTE | 2018-06-30 02:30 | NUR.NOTE ---
Nursing Note: patient sleeping, vital signs stable.
--- NOTE | 2018-06-30 05:30 | NUR.NOTE ---
Nursing Note: oob to the chair, napping, no complaints offered, vital signs stable.
--- NOTE | 2018-06-30 06:51 | NUR.NOTE ---
Nursing Note: patient oob ambulated to the bathroom, unsteady ambulating with cane, returned to bed via wheelchair, coughing productive of thick sputum. breakfast eaten well. patiennt offers no complaints, vital signs stable. sitting in a recliner-much more comfortable. respirations remain shallow and sob with exertion.
[2018-06-30] MEDS: Pantoprazole 40 MG TABCR PO (07:20)
[2018-06-30] MEDS: Clopidogrel 75 MG TAB PO (07:25)
[2018-06-30] MEDS: Metoprolol CR 25 MG TABCR 12.5 MG PO (07:46)
[2018-06-30] MEDS: Carvedilol 6.25 MG TAB PO (07:46)
--- NOTE | 2018-06-30 10:00 | NUR.NOTE ---
update given to Sebastian at the transfer center. he is working on a bed for mr. martin.
[2018-06-30 11:15] LABS: Anion Gap 8.8 mmol/L (3-11); BUN 54 mg/dL (7-18); CO2 31.2 mmol/L (21.0-32.0); Calcium 6.9 mg/dL (8.5-10.1); Chloride 93 mmol/L (98-107); Estimated GFR 5.65 (mL/min/1.73m2); Glucose 96 mg/dL (70-100); Sodium 133 mmol/L (136-145)
[2018-06-30 11:17] LABS: CREATININE 9.19 mg/dL (0.70-1.30)
[2018-06-30 11:18] LABS: Potassium 6.1 mmol/L (3.5-5.1)
--- NOTE | 2018-07-05 18:21 | NUR.NOTE ---
patient transferred to [facility] and discharged. Faxed blood culture report to patients pcp Dr. Devin Willard.Nursing Note:
== END 2018-06-30 14:22 | disposition short-term general hospital (02) ==
PROVIDERS: Emergency Medicine; Emergency Provider Emergency Medicine; PCP Emergency Medicine
DX: J10.00 Influenza due to other identified influenza virus with unspecified type of pneumonia (principal); R53.81 Other malaise; R09.89 Other specified symptoms and signs involving the circulatory and respiratory systems; R68.83 Chills (without fever); E87.5 Hyperkalemia; I48.91 Unspecified atrial fibrillation; I12.0 Hypertensive chronic kidney disease with stage 5 chronic kidney disease or end stage renal disease; N18.6 End stage renal disease; Z99.2 Dependence on renal dialysis; Z99.81 Dependence on supplemental oxygen; Z79.01 Long term (current) use of anticoagulants
CPT/HCPCS: 36410; 36415; 80048; 87040; 87449; 93005; 94640; 96365; 96366; 99285; 71046; 83605; 85025; 85610; 93010; J1956; J7613; J7620

== ENCOUNTER 2018-07-04 01:30 | Outpatient (CLI) | payer MEDICARE, BC, SELFPAY ==
[2018-07-04 13:05] LABS: INR 1.6 (0.9-1.1); Prothrombin Time 15.7 sec (9.3-11.0)
== END 2018-07-04 01:50 ==
PROVIDERS: PCP Emergency Medicine; Visit Provider Emergency Medicine
DX: I25.10 Atherosclerotic heart disease of native coronary artery without angina pectoris (principal); Z79.01 Long term (current) use of anticoagulants
CPT/HCPCS: 36415; 85610

== ENCOUNTER 2018-07-11 05:30 | Outpatient (CLI) | payer MEDICARE, BC, SELFPAY ==
[2018-07-11 12:11] LABS: INR 3.3 (0.9-1.1); Prothrombin Time 33.7 sec (9.3-11.0)
== END 2018-07-11 05:50 ==
PROVIDERS: PCP Emergency Medicine; Visit Provider Emergency Medicine
DX: I25.10 Atherosclerotic heart disease of native coronary artery without angina pectoris (principal); Z79.01 Long term (current) use of anticoagulants
CPT/HCPCS: 36415; 85610

== ENCOUNTER 2018-07-18 11:38 | Outpatient (CLI) | payer MEDICARE, BC, SELFPAY ==
[2018-07-18 12:43] LABS: Prothrombin Time 30.2 sec (9.3-11.0)
== END 2018-07-18 11:58 ==
PROVIDERS: PCP Emergency Medicine; Visit Provider Emergency Medicine
DX: I25.10 Atherosclerotic heart disease of native coronary artery without angina pectoris (principal); Z79.01 Long term (current) use of anticoagulants
CPT/HCPCS: 36415; 85610

== ENCOUNTER 2018-07-25 01:35 | Outpatient (CLI) | payer MEDICARE, BC, SELFPAY ==
[2018-07-25 12:10] LABS: INR 3.2 (0.9-1.1); Prothrombin Time 32.5 sec (9.3-11.0)
== END 2018-07-25 01:55 ==
PROVIDERS: PCP Emergency Medicine; Visit Provider Emergency Medicine
DX: I25.10 Atherosclerotic heart disease of native coronary artery without angina pectoris (principal); Z79.01 Long term (current) use of anticoagulants
CPT/HCPCS: 36415; 85610

== ENCOUNTER 2018-08-01 01:59 | Outpatient (CLI) | payer MEDICARE, BC, SELFPAY ==
[2018-08-01 12:40] LABS: Prothrombin Time 30.8 sec (9.3-11.0)
== END 2018-08-01 02:19 ==
PROVIDERS: PCP Emergency Medicine; Visit Provider Emergency Medicine
DX: Z79.01 Long term (current) use of anticoagulants (principal)
CPT/HCPCS: 36415; 85610

== ENCOUNTER 2018-08-08 05:26 | Outpatient (CLI) | payer MEDICARE, BC, SELFPAY ==
[2018-08-08 12:20] LABS: INR 3.3 (0.9-1.1); Prothrombin Time 33.4 sec (9.3-11.0)
== END 2018-08-08 05:46 ==
PROVIDERS: PCP Emergency Medicine; Visit Provider Emergency Medicine
DX: I25.10 Atherosclerotic heart disease of native coronary artery without angina pectoris (principal); Z79.01 Long term (current) use of anticoagulants
CPT/HCPCS: 36415; 85610

== ENCOUNTER 2018-08-10 17:10 | Emergency (ER) | payer MEDICARE, BC, SELFPAY ==
[2018-08-10] VITALS (43 sets, daily range): BP systolic 96–128; BP diastolic 50–70; PULSE 74–92; RESP 13–28; TEMP 36.3–36.9; O2SAT 96–100
[2018-08-10 17:54] LABS: Abs Immature Grans 0.02 k/cumm (0.0-0.09); Absolute Basophil Count 0.03 k/cumm (0.0-0.2); Absolute Eosinophil Count 0.13 k/cumm (0.0-0.7); Absolute Monocyte Count 0.51 k/cumm (0.11-0.7); Absolute Neutrophil Count 4.25 k/cumm (1.2-6.7); Basophils % 0.5; Eosinophils % 2.2; HCT 25.5 % (40.0-50.0); HGB 7.8 g/dL (13.5-17.5); Immature Grans % 0.3; Lymphocytes % 15.4; Mean Corp. HGB Concentration 30.6 g/dL (32.0-36.0); Mean Corpuscular Hemoglobin 36.8 pg (27.0-33.0); Mean Corpuscular Volume 120.3 fL (80-95); Mean Platelet Volume 10.2 fL (8.0-11.0); Monocytes % 8.7; Neutrophils % 72.9; Platelet Count 194 x1000/uL (130-400); RBC 2.12 m/cumm (4.50-6.00); RBC Distribution Width 21.2 % (11.8-14.1); White Blood Cell Count 5.84 k/cumm (4.4-10.8)
[2018-08-10 18:04] LABS: Anisocytosis 1+; Basophilic Stippling Present; Macrocytosis 1+; Polychromasia Present
[2018-08-10 18:08] LABS: PTT Activated 36.3 sec (21.0-31.4); Prothrombin Time 40.5 sec (9.3-11.0)
[2018-08-10 18:09] LABS: ALT 13 U/L (12-78); AST 17 U/L (15-37); Albumin 3.1 g/dL (3.4-5.0); Alkaline Phosphatase 145 U/L (46-116); Anion Gap 8.7 mmol/L (3-11); BUN 51 mg/dL (7-18); Bilirubin, Total 0.4 mg/dL (0.2-1.0); CO2 32.3 mmol/L (21.0-32.0); Calcium 8.2 mg/dL (8.5-10.1); Chloride 95 mmol/L (98-107); Estimated GFR 8.02 (mL/min/1.73m2); Glucose 94 mg/dL (70-100); Magnesium 1.6 mg/dL (1.8-2.4); Potassium 4.7 mmol/L (3.5-5.1); Sodium 136 mmol/L (136-145); Total Protein 7.8 g/dL (6.4-8.2); Troponin I 0.02 ng/mL (0.00-0.06)
[2018-08-10 18:12] LABS: CREATININE 6.78 mg/dL (0.70-1.30)
--- NOTE | 2018-08-10 18:34 | W.ED.GENAD ---
Discharge Plan Disposition Patient Disposition: [facility] Condition: Stable Discharge Details Chief Complaint: GI Bleed Clinical Impression: GI bleed, Weakness, ESRD (end stage renal disease) on dialysis, Acute on chronic anemia, Dyspnea on exertion, Fatigue Primary Care Provider: Devin Willard ED Provider: Soco Heck Home Meds and New Rx's Prescriptions: No Action metoprolol succinate 25 mg tablet extended release 24 hr 12.5 mg PO DAILY RF: 0 cyanocobalamin (vitamin B-12) 1,000 MCG/1 ML solution 1 ml IM DIRECTED Qty: 1 RF: 0 iron 18 MG tablet 18 mg IV INFUSION RF: 0 cinacalcet [Sensipar] 30 MG tablet 30 mg PO DIRECTED RF: 0 Epogen 20,000 UNIT/1 ML solution 20,000 unit IJ given at dialysis RF: 0 pantoprazole 40 MG tablet,delayed release (DR/EC) 40 mg PO BID Qty: 180 RF: 3 acetaminophen [Tylenol Extra Strength] 500 MG tablet 500 mg PO TID PRN RF: 0 clopidogrel [Plavix] 75 mg tablet 75 mg PO DAILY Qty: 90 RF: 3 atorvastatin 40 mg tablet 40 mg PO DAILY Qty: 90 RF: 3 warfarin 2.5 mg tablet 2.5 - 7.5 mg PO DAILY Qty: 100 RF: 6 folic acid 1 mg Tablet 1 mg PO DAILY RF: 0 Medical Decision Making 73-year-old male with an extensive cardiac history including NSTEMI, CAD, GI bleed, hypertension, hyperlipidemia, end-stage renal disease on dialysis, CABG, AAA repair, and aortic valve replacement and coronary stent placement who presents with increasing weakness, fatigue, shortness of breath and dark stools over the past few days, worse today. Last hemodialysis 2 days ago. Last hemoglobin 8.8 six days ago. Blood pressure mildly hypertensive, 107/50. Remainder vitals within normal limits. Patient appears pale but otherwise nontoxic. Lungs clear to auscultation. Abdomen soft nontender. He has 2+ pitting bilateral lower extremity edema. Will place an IV, labs, type and screen, EKG and chest x-ray. EKG notes a rate 80, sinus, PVCs. T wave inversion in I, II, V4-6, more pronounced but seen in previous EKG. No acute ST findings. 1899 --labs and imaging reviewed. White blood cell count 5.84. Hemoglobin 7.8. INR 4. BUN 51. Creatinine 6.78. Magnesium 1.6. Troponin negative. Chest x-ray notes underlying interstitial fibrosis with possibility of mild interstitial edema secondary to CHF. Will hold on blood products at this time due to concern for fluid overload per 1929 -- d/w [facility] - accepts pt for admission. Accepting physician Dr. Dotson. Would like Protonix IV. Recommends to hold on blood products at this time. Will call with bed placement. Patient informed of plan and is agreeable. Dr. Dotson would like second IV in right upper extremity. He has a fistula in the left upper extremity and unable to obtain IV access there. Medical Records Medical records reviewed: Yes I reviewed the patient's medical records. Imaging Data Radiologic Study: Radiologist's impression: XR Chest, 2 Views EXAM DATE/TIME: 08/10/2018 5:30 PM FINDINGS: Mild interstitial lung disease slightly more pronounced than on the prior examination which may be may be due to differences in technique . This is most suggestive of interstitial fibrosis however there may be some mild superimposed interstitial edema from congestive heart failure. Cardiomegaly No significant focal consolidation. Probable minimal right pleural effusion. Prior median sternotomy and aortic valve placement. Bony structures unremarkable. IMPRESSION: Underlying interstitial fibrosis. The possibility of mild interstitial edema secondary to congestive heart failure would also be considered. Lab Data Lab results reviewed: Yes I reviewed the patient's lab results. Laboratory Tests Range/Units 08/10/18 08/10/18 08/10/18 17:40 17:40 17:40 WBC (4.4-10.8) k/cumm 5.84 RBC (4.50-6.00) m/cumm 2.12 L Hgb (13.5-17.5) g/dL 7.8 L Hct (40.0-50.0) % 25.5 L MCV (80-95) fL 120.3 H MCH (27.0-33.0) pg 36.8 H MCHC (32.0-36.0) g/dL 30.6 L RDW (11.8-14.1) % 21.2 H Plt Count (130-400) x1000/uL 194 MPV (8.0-11.0) fL 10.2 Immature Gran % 0.3 Neutrophils % 72.9 Lymphocytes % 15.4 Monocytes % 8.7 Eosinophils % 2.2 Basophils % 0.5 Absolute Neutrophils (1.2-6.7) k/cumm 4.25 Absolute Lymphocytes (1.2-3.4) k/cumm 0.90 L Absolute Monocytes (0.11-0.7) k/cumm 0.51 Absolute Eosinophils (0.0-0.7) k/cumm 0.13 Absolute Basophils (0.0-0.2) k/cumm 0.03 RBC Morphology See below Polychromasia Present Basophilic Stippling Present Anisocytosis 1+ Macrocytosis 1+ PT (9.3-11.0) sec 40.5 H INR (0.9-1.1) 4.0 H D APTT (21.0-31.4) sec 36.3 H Sodium (136-145) mmol/L 136 Potassium (3.5-5.1) mmol/L 4.7 Chloride (98-107) mmol/L 95 L Carbon Dioxide (21.0-32.0) mmol/L 32.3 H Anion Gap (3-11) mmol/L 8.7 BUN (7-18) mg/dL 51 H Creatinine (0.70-1.30) mg/dL 6.78 H* Estimated GFR/1.73 m2 (mL/min/1.73m2) 8.02 Glucose (70-100) mg/dL 94 Calcium (8.5-10.1) mg/dL 8.2 L Magnesium (1.8-2.4) mg/dL 1.6 L Total Bilirubin (0.2-1.0) mg/dL 0.4 AST (15-37) U/L 17 ALT (12-78) U/L 13 Alkaline Phosphatase (46-116) U/L 145 H Troponin I (0.00-0.06) ng/mL 0.02 Total Protein (6.4-8.2) g/dL 7.8 Albumin (3.4-5.0) g/dL 3.1 L Patient ABO/Rh Antibody Screen Range/Units 08/10/18 18:00 WBC (4.4-10.8) k/cumm RBC (4.50-6.00) m/cumm Hgb (13.5-17.5) g/dL Hct (40.0-50.0) % MCV (80-95) fL MCH (27.0-33.0) pg MCHC (32.0-36.0) g/dL RDW (11.8-14.1) % Plt Count (130-400) x1000/uL MPV (8.0-11.0) fL Immature Gran % Neutrophils % Lymphocytes % Monocytes % Eosinophils % Basophils % Absolute Neutrophils (1.2-6.7) k/cumm Absolute Lymphocytes (1.2-3.4) k/cumm Absolute Monocytes (0.11-0.7) k/cumm Absolute Eosinophils (0.0-0.7) k/cumm Absolute Basophils (0.0-0.2) k/cumm RBC Morphology Polychromasia Basophilic Stippling Anisocytosis Macrocytosis PT (9.3-11.0) sec INR (0.9-1.1) APTT (21.0-31.4) sec Sodium (136-145) mmol/L Potassium (3.5-5.1) mmol/L Chloride (98-107) mmol/L Carbon Dioxide (21.0-32.0) mmol/L Anion Gap (3-11) mmol/L BUN (7-18) mg/dL Creatinine (0.70-1.30) mg/dL Estimated GFR/1.73 m2 (mL/min/1.73m2) Glucose (70-100) mg/dL Calcium (8.5-10.1) mg/dL Magnesium (1.8-2.4) mg/dL Total Bilirubin (0.2-1.0) mg/dL AST (15-37) U/L ALT (12-78) U/L Alkaline Phosphatase (46-116) U/L Troponin I (0.00-0.06) ng/mL Total Protein (6.4-8.2) g/dL Albumin (3.4-5.0) g/dL Patient ABO/Rh O Positive Antibody Screen Negative ECG Data Attestation: I personally reviewed and interpreted this ECG (s) as follows: Interpretation: Rate of 80, sinus, PVCs. No acute ST elevation or depression. QTc 480. QRS 112. HPI General Mode of arrival: ambulatory. Date/Time Provider Initiated Documentation: 08/10/18 17:26. Limitations to Documentation: no limitations. Information obtained by: patient. HPI Narrative: Patient is a 73-year-old male with history of NSTEMI, CAD, GI bleed, hypertension, hyperlipidemia, end-stage renal disease on dialysis who presents to the ED with a complaint of increasing weakness, fatigue, shortness of breath and dark stools over the past few days, worse today. Patient states his stools were black today. His last hemodialysis was 2 days ago. He states he makes little urine. Patient states he ate less than usual today. He states he had a GI bleed 1 year ago for which she was seen at [facility] by gastroenterology Dr. Sosa. He states his lacer and tier is Dr. Whalen at [facility]. He denies fever, vomiting, abdominal pain, chest pain. Related Data Home Medications Medication Instructions Recorded Confirmed cyanocobalamin (vitamin B-12) 1 ml IM DIRECTED #1 vial 09/08/12 08/10/18 cinacalcet [Sensipar] 30 mg PO DIRECTED 02/07/16 08/10/18 iron 18 mg IV INFUSION 02/07/16 08/10/18 Epogen 20,000 unit IJ given at dialysis 11/28/16 08/10/18 vial pantoprazole 40 mg PO BID #180 tab-cap 11/22/17 08/10/18 acetaminophen [Tylenol Extra 500 mg PO TID PRN 12/24/17 08/10/18 Strength] metoprolol succinate ER 25 mg 12.5 mg PO DAILY tab 04/22/18 08/10/18 tablet,extended release 24 hr folic acid 1 mg PO DAILY 05/23/18 08/10/18 clopidogrel 75 mg tablet 75 mg PO DAILY #90 tab-cap 05/28/18 08/10/18 atorvastatin 40 mg tablet 40 mg PO DAILY #90 tab-cap 06/04/18 08/10/18 warfarin 2.5 mg tablet 2.5 - 7.5 mg PO DAILY #100 tab-cap 06/25/18 08/10/18 Previous Rx's Medication Instructions Recorded pantoprazole 40 mg PO BID #180 tab-cap 11/22/17 clopidogrel 75 mg tablet 75 mg PO DAILY #90 tab-cap 05/28/18 atorvastatin 40 mg tablet 40 mg PO DAILY #90 tab-cap 06/04/18 warfarin 2.5 mg tablet 2.5 - 7.5 mg PO DAILY #100 tab-cap 06/25/18 Allergies Allergy/AdvReac Type Severity Reaction Status Date / Time Penicillins Allergy Unknown Verified 08/10/18 18:59 General Stated Complaint: GI Bleed YOVANI: 2 Review of Systems Review of Systems All systems reviewed & are unremarkable except as noted in HPI and below Constitutional Reports as per HPI, Denies chills, Reports fatigue, Denies fever(s) and Reports weakness Eyes Denies blurry vision ENT Denies dizziness, Denies sore throat and Denies throat swelling Cardiovascular Denies chest pain and Reports dyspnea Respiratory Denies cough and Reports dyspnea Gastrointestinal Denies abdominal pain, Reports melena, Denies diarrhea and Denies vomiting Genitourinary Denies hematuria and Denies dysuria Musculoskeletal Denies back pain and Denies numbness Integumentary/Breasts Denies lesions and Denies rash Neurologic Denies dizziness, Denies focal weakness, Denies numbness and Reports weakness Endocrine Reports fatigue Allergic/Immunologic Denies throat swelling [facility] Medical History Anticoagulant long-term use (Chronic) PAF (paroxysmal atrial fibrillation) (Chronic) Postherpetic neuralgia (Chronic) Renal failure syndrome (Chronic 01/09/12) Anticoagulated on warfarin (Chronic) Overweight (Chronic) Microscopic hematuria (Chronic 04/04/99) Essential hypertension (Chronic 04/13/13) Diastasis recti (Chronic 12/15/13) Chronic renal failure syndrome (Chronic 02/15/12) Cardiac arrest (Chronic 11/05/17) Atrial fibrillation (Chronic) Atherosclerosis of coronary artery bypass graft (Chronic 04/04/01) Aortic aneurysm (Chronic) Anemia due to vitamin B12 deficiency (Chronic 11/11/12) Actinic keratosis (Chronic) ESRD (end stage renal disease) (Chronic 10/25/14) CHF (congestive heart failure) (Chronic) 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) Surgical History Metallic aortic valve replacement during current hospitalization (Chronic 12/15/13) S/P AVR (aortic valve replacement) (Chronic) H/O surgical procedure (Chronic) Cholecystectomy Stent placement (~2001) Social History Smoking/Tobacco Use Status: Former Tobacco Use Drug use: Never Do you feel safe at home: Yes Do you feel safe in your relationship?: Yes Exam Const General: cooperative and no acute distress HENMT Head: normal to inspection Face and sinus: normal facial exam Eyes General: appearance normal, both eyes and all related structures Conjunctivae: conjunctival abnormality bilaterally pallor EOM: EOM intact bilaterally Neck Neck: normal visual inspection and No submandibular swelling Lymphatic: no lymphadenopathy noted Chest Chest: normal inspection of the chest and no tenderness Resp Effort & Inspection: normal respiratory effort and able to speak in complete sentences Auscultation: clear to auscultation bilaterally Cardio Rate: regular rate Rhythm: regular rhythm GI Inspection: normal to inspection Palpation: soft, not firm, not rigid and nontender Auscultation: normal bowel sounds Rectal Exam: normal sphincter tone and heme positive stool (dark brown colored stool ) Skin General skin exam: no rashes or lesions noted Neuro General: alert, awake and oriented x3 Cognition: normal cognition Speech: speech normal Motor: muscle tone normal throughout Sensory Exam: no sensory deficits noted Extrem General: full ROM and edema Laterality: bilateral (2+) Other: Pulsatile fistula in left upper arm. Psych Appearance: grossly normal Mental Status: mental status grossly normal Speech and Movement: speech and movement normal Affect: normal affect Course Vital Signs Temperature 97.9 F 08/10/18 17:18 Pulse 84 08/10/18 17:18 Respiratory Rate 20 08/10/18 17:18 Blood Pressure 107/54 L 08/10/18 17:18 Pulse Oximetry 100 08/10/18 17:18 Temperature 97.9 F 08/10/18 17:18 Temperature Source Skin 08/10/18 17:18 Pulse 84 08/10/18 17:18 Respiratory Rate 20 08/10/18 17:18 Blood Pressure 107/54 L 08/10/18 17:18 Blood Pressure Position Sitting 08/10/18 17:18 Pulse Oximetry 100 08/10/18 17:18 Oxygen Delivery Method Nasal Cannula 08/10/18 17:18 Oxygen Flow Rate 2 08/10/18 17:18 Comment chronic oxygen - 2 liters during the day - 3 at night 08/10/18 17:18 Lab/Test Results Lab/Test Results: Laboratory Tests Range/Units 08/10/18 08/10/18 08/10/18 17:40 17:40 17:40 WBC (4.4-10.8) k/cumm 5.84 RBC (4.50-6.00) m/cumm 2.12 L Hgb (13.5-17.5) g/dL 7.8 L Hct (40.0-50.0) % 25.5 L MCV (80-95) fL 120.3 H MCH (27.0-33.0) pg 36.8 H MCHC (32.0-36.0) g/dL 30.6 L RDW (11.8-14.1) % 21.2 H Plt Count (130-400) x1000/uL 194 MPV (8.0-11.0) fL 10.2 Immature Gran % 0.3 Neutrophils % 72.9 Lymphocytes % 15.4 Monocytes % 8.7 Eosinophils % 2.2 Basophils % 0.5 Absolute Neutrophils (1.2-6.7) k/cumm 4.25 Absolute Lymphocytes (1.2-3.4) k/cumm 0.90 L Absolute Monocytes (0.11-0.7) k/cumm 0.51 Absolute Eosinophils (0.0-0.7) k/cumm 0.13 Absolute Basophils (0.0-0.2) k/cumm 0.03 RBC Morphology See below Polychromasia Present Basophilic Stippling Present Anisocytosis 1+ Macrocytosis 1+ PT (9.3-11.0) sec 40.5 H INR (0.9-1.1) 4.0 H D APTT (21.0-31.4) sec 36.3 H Sodium (136-145) mmol/L 136 Potassium (3.5-5.1) mmol/L 4.7 Chloride (98-107) mmol/L 95 L Carbon Dioxide (21.0-32.0) mmol/L 32.3 H Anion Gap (3-11) mmol/L 8.7 BUN (7-18) mg/dL 51 H Creatinine (0.70-1.30) mg/dL 6.78 H* Estimated GFR/1.73 m2 (mL/min/1.73m2) 8.02 Glucose (70-100) mg/dL 94 Calcium (8.5-10.1) mg/dL 8.2 L Magnesium (1.8-2.4) mg/dL 1.6 L Total Bilirubin (0.2-1.0) mg/dL 0.4 AST (15-37) U/L 17 ALT (12-78) U/L 13 Alkaline Phosphatase (46-116) U/L 145 H Troponin I (0.00-0.06) ng/mL 0.02 Total Protein (6.4-8.2) g/dL 7.8 Albumin (3.4-5.0) g/dL 3.1 L
--- NOTE | 2018-08-10 18:45 | DI.RAD_ITS ---
SYMPTOM/DIAGNOSIS: GI BLEED, PALE FRONTAL AND LATERAL CHEST: Comparison is made with 06/29/18. The heart is enlarged. Pacing wires are stable in position. There does appear to be an aortic valvular replacement. There is mild prominence of the pulmonary vasculature. There is a small right pleural effusion. Mild prominent interstitial markings are present throughout. This may be chronic however acute interstitial disease cannot be excluded. IMPRESSION: 1. Cardiomegaly. 2. Small right pleural effusion. 3. Prominent interstitial pattern. Differential considerations include chronic interstitial fibrosis versus superimposed acute interstitial edema or pneumonitis. Please correlate clinically.
--- NOTE | 2018-08-10 19:50 | DI.VRAD_ITS ---
EXAM: XR Chest, 2 Views EXAM DATE/TIME: 08/10/2018 5:30 PM CLINICAL HISTORY: 73 years old, male; Signs and symptoms; Other: Pale gi bleed; Patient HX: Pale, gi bleed TECHNIQUE: Imaging protocol: XR of the chest, 2 views. COMPARISON: CR XR CHEST 2V PA LATERAL 06/29/2018 8:48 PM FINDINGS: Mild interstitial lung disease slightly more pronounced than on the prior examination which may be may be due to differences in technique . This is most suggestive of interstitial fibrosis however there may be some mild superimposed interstitial edema from congestive heart failure. Cardiomegaly No significant focal consolidation. Probable minimal right pleural effusion. Prior median sternotomy and aortic valve placement. Bony structures unremarkable. IMPRESSION: Underlying interstitial fibrosis. The possibility of mild interstitial edema secondary to congestive heart failure would also be considered. Dictated and Authenticated by: Kiran Cazares MD. Ordering:NILSA Wan MD
[2018-08-10] MEDS: Pantoprazole 40 MG VIAL IVP (20:00)
== END 2018-08-10 22:00 | disposition short-term general hospital (02) ==
PROVIDERS: Emergency Provider Physician Assistant; PCP Emergency Medicine
DX: K92.2 Gastrointestinal hemorrhage, unspecified (principal); R53.1 Weakness; D64.89 Other specified anemias; R53.83 Other fatigue; R06.09 Other forms of dyspnea; I12.0 Hypertensive chronic kidney disease with stage 5 chronic kidney disease or end stage renal disease; N18.6 End stage renal disease; Z99.2 Dependence on renal dialysis; Z95.5 Presence of coronary angioplasty implant and graft
CPT/HCPCS: 36415; 80053; 86850; 86900; 86901; 93005; 96374; 99285; 71046; 83735; 84484; 85025; 85610; 85730; 93010

== ENCOUNTER 2018-09-15 01:16 | Outpatient (CLI) | payer MEDICARE, BC, SELFPAY ==
[2018-09-15 12:15] LABS: INR 3.4 (0.9-1.1); Prothrombin Time 34.4 sec (9.3-11.0)
== END 2018-09-15 01:36 ==
PROVIDERS: PCP Emergency Medicine; Visit Provider Emergency Medicine
DX: I25.10 Atherosclerotic heart disease of native coronary artery without angina pectoris (principal); Z79.01 Long term (current) use of anticoagulants
CPT/HCPCS: 36415; 85610

== ENCOUNTER 2018-09-22 11:23 | Outpatient (CLI) | payer MEDICARE, BC, SELFPAY ==
[2018-09-22 12:26] LABS: INR 3.4 (0.9-1.1); Prothrombin Time 34.1 sec (9.3-11.0)
== END 2018-09-22 11:43 ==
PROVIDERS: PCP Emergency Medicine; Visit Provider Emergency Medicine
DX: I25.10 Atherosclerotic heart disease of native coronary artery without angina pectoris (principal); Z79.01 Long term (current) use of anticoagulants
CPT/HCPCS: 36415; 85610

== ENCOUNTER 2018-09-30 01:58 | Outpatient (CLI) | payer MEDICARE, BC, SELFPAY ==
[2018-09-30 11:26] LABS: INR 3.9 (0.9-1.1); Prothrombin Time 39.7 sec (9.3-11.0)
== END 2018-09-30 02:18 ==
PROVIDERS: PCP Emergency Medicine; Visit Provider Emergency Medicine
DX: I25.10 Atherosclerotic heart disease of native coronary artery without angina pectoris (principal); Z79.01 Long term (current) use of anticoagulants
CPT/HCPCS: 36415; 85610

== ENCOUNTER 2018-10-06 07:41 | Outpatient (CLI) | payer MEDICARE, BC, SELFPAY ==
[2018-10-06 12:19] LABS: INR 2.5 (0.9-1.1); Prothrombin Time 25.5 sec (9.3-11.0)
== END 2018-10-06 08:01 ==
PROVIDERS: PCP Emergency Medicine; Visit Provider Emergency Medicine
DX: I25.10 Atherosclerotic heart disease of native coronary artery without angina pectoris (principal); Z79.01 Long term (current) use of anticoagulants
CPT/HCPCS: 36415; 85610

== ENCOUNTER 2018-10-13 02:15 | Outpatient (CLI) | payer MEDICARE, BC, SELFPAY ==
[2018-10-13 13:49] LABS: INR 2.1 (0.9-1.1); Prothrombin Time 21.2 sec (9.3-11.0)
== END 2018-10-13 02:35 ==
PROVIDERS: PCP Emergency Medicine; Visit Provider Emergency Medicine
DX: Z79.01 Long term (current) use of anticoagulants (principal); R69 Illness, unspecified
CPT/HCPCS: 36415; 85610

== ENCOUNTER 2018-10-21 01:47 | Outpatient (CLI) | payer MEDICARE, BC, SELFPAY ==
[2018-10-21 08:00] LABS: INR 3.9 (0.9-1.1)
== END 2018-10-21 02:07 ==
PROVIDERS: PCP Emergency Medicine; Visit Provider Emergency Medicine
DX: I25.10 Atherosclerotic heart disease of native coronary artery without angina pectoris (principal); Z79.01 Long term (current) use of anticoagulants
CPT/HCPCS: 36415; 85610

== ENCOUNTER 2018-10-28 01:43 | Outpatient (CLI) | payer MEDICARE, BC, SELFPAY ==
[2018-10-28 08:18] LABS: Prothrombin Time 30.6 sec (9.3-11.0)
== END 2018-10-28 02:03 ==
PROVIDERS: PCP Emergency Medicine; Visit Provider Emergency Medicine
DX: I25.10 Atherosclerotic heart disease of native coronary artery without angina pectoris (principal); Z79.01 Long term (current) use of anticoagulants
CPT/HCPCS: 36415; 85610

== ENCOUNTER 2018-11-04 01:55 | Outpatient (CLI) | payer MEDICARE, BC, SELFPAY ==
[2018-11-04 08:10] LABS: INR 4.2 (0.9-1.1)
== END 2018-11-04 02:15 ==
PROVIDERS: PCP Emergency Medicine; Visit Provider Emergency Medicine
DX: I25.10 Atherosclerotic heart disease of native coronary artery without angina pectoris (principal); Z79.01 Long term (current) use of anticoagulants
CPT/HCPCS: 36415; 85610

== ENCOUNTER 2018-11-11 02:01 | Outpatient (CLI) | payer MEDICARE, BC, SELFPAY ==
[2018-11-11 08:01] LABS: Prothrombin Time 18.6 sec (9.3-11.0)
[2018-11-11 08:02] LABS: INR 1.8 (0.9-1.1)
== END 2018-11-11 02:21 ==
PROVIDERS: PCP Emergency Medicine; Visit Provider Emergency Medicine
DX: I25.10 Atherosclerotic heart disease of native coronary artery without angina pectoris (principal); Z79.01 Long term (current) use of anticoagulants
CPT/HCPCS: 36415; 85610

== ENCOUNTER 2018-11-18 06:01 | Outpatient (CLI) | payer MEDICARE, BC, SELFPAY ==
[2018-11-18 08:20] LABS: INR 3.7 (0.9-1.1); Prothrombin Time 37.5 sec (9.3-11.0)
== END 2018-11-18 06:21 ==
PROVIDERS: PCP Emergency Medicine; Visit Provider Emergency Medicine
DX: I25.10 Atherosclerotic heart disease of native coronary artery without angina pectoris (principal); Z79.01 Long term (current) use of anticoagulants
CPT/HCPCS: 36415; 85610

== ENCOUNTER 2018-11-25 01:35 | Outpatient (CLI) | payer MEDICARE, BC, SELFPAY ==
[2018-11-25 08:39] LABS: INR 2.1 (0.9-1.1)
== END 2018-11-25 01:55 ==
PROVIDERS: PCP Emergency Medicine; Visit Provider General Practice
DX: I25.10 Atherosclerotic heart disease of native coronary artery without angina pectoris (principal); Z79.01 Long term (current) use of anticoagulants
CPT/HCPCS: 36415; 85610

== ENCOUNTER 2018-12-02 08:05 | Outpatient (CLI) | payer MEDICARE, BC, SELFPAY ==
[2018-12-02 08:56] LABS: INR 2.3 (0.9-1.1); Prothrombin Time 23.3 sec (9.3-11.0)
== END 2018-12-02 08:25 ==
PROVIDERS: PCP Emergency Medicine; Visit Provider Emergency Medicine
DX: I25.10 Atherosclerotic heart disease of native coronary artery without angina pectoris (principal); Z79.01 Long term (current) use of anticoagulants
CPT/HCPCS: 36415; 85610

== ENCOUNTER 2018-12-09 01:32 | Outpatient (CLI) | payer MEDICARE, BC, SELFPAY ==
[2018-12-09 08:30] LABS: Prothrombin Time 46.6 sec (9.3-11.0)
[2018-12-09 08:34] LABS: INR 4.6 (0.9-1.1)
== END 2018-12-09 01:52 ==
PROVIDERS: PCP Emergency Medicine; Visit Provider Emergency Medicine
DX: I25.10 Atherosclerotic heart disease of native coronary artery without angina pectoris (principal); Z79.01 Long term (current) use of anticoagulants
CPT/HCPCS: 36415; 85610

== ENCOUNTER 2018-12-11 02:12 | Outpatient (CLI) | payer MEDICARE, BC, SELFPAY ==
[2018-12-11 13:43] LABS: Prothrombin Time 20.5 sec (9.3-11.0)
== END 2018-12-11 02:32 ==
PROVIDERS: PCP Emergency Medicine; Visit Provider Emergency Medicine
DX: I25.10 Atherosclerotic heart disease of native coronary artery without angina pectoris (principal); Z79.01 Long term (current) use of anticoagulants
CPT/HCPCS: 36415; 85610

== ENCOUNTER 2018-12-18 00:33 | Outpatient (CLI) | payer MEDICARE, BC, SELFPAY ==
[2018-12-18 13:22] LABS: INR 2.2 (0.9-1.1); Prothrombin Time 21.9 sec (9.3-11.0)
== END 2018-12-18 00:53 ==
PROVIDERS: PCP Emergency Medicine; Visit Provider Emergency Medicine
DX: Z79.01 Long term (current) use of anticoagulants (principal); R69 Illness, unspecified
CPT/HCPCS: 36415; 85610

== ENCOUNTER 2018-12-26 03:36 | Outpatient (CLI) | payer MEDICARE, BC, SELFPAY ==
[2018-12-26 12:01] LABS: Prothrombin Time 30.7 sec (9.3-11.0)
== END 2018-12-26 03:56 ==
PROVIDERS: PCP Emergency Medicine; Visit Provider Emergency Medicine
DX: I25.10 Atherosclerotic heart disease of native coronary artery without angina pectoris (principal); Z79.01 Long term (current) use of anticoagulants
CPT/HCPCS: 36415; 85610

== ENCOUNTER 2019-01-02 02:23 | Outpatient (CLI) | payer MEDICARE, BC, SELFPAY ==
[2019-01-02 13:31] LABS: INR 2.1 (0.9-1.1); Prothrombin Time 20.7 sec (9.3-11.0)
== END 2019-01-02 02:43 ==
PROVIDERS: PCP Emergency Medicine; Visit Provider Emergency Medicine
DX: Z79.01 Long term (current) use of anticoagulants (principal)
CPT/HCPCS: 36415; 85610

== ENCOUNTER 2019-01-09 03:48 | Outpatient (CLI) | payer MEDICARE, BC, SELFPAY ==
[2019-01-09 12:32] LABS: INR 2.8 (0.9-1.1); Prothrombin Time 28.4 sec (9.3-11.0)
== END 2019-01-09 04:08 ==
PROVIDERS: PCP Emergency Medicine; Visit Provider Emergency Medicine
DX: I25.10 Atherosclerotic heart disease of native coronary artery without angina pectoris (principal); Z79.01 Long term (current) use of anticoagulants
CPT/HCPCS: 36415; 85610

== ENCOUNTER 2019-01-23 02:06 | Outpatient (CLI) | payer MEDICARE, BC, SELFPAY ==
[2019-01-23 12:13] LABS: Prothrombin Time 40.5 sec (9.3-11.0)
[2019-01-23 12:26] LABS: INR 4.2 (0.9-1.1)
== END 2019-01-23 02:26 ==
PROVIDERS: PCP Emergency Medicine; Visit Provider Emergency Medicine
DX: I25.10 Atherosclerotic heart disease of native coronary artery without angina pectoris (principal); Z79.01 Long term (current) use of anticoagulants
CPT/HCPCS: 36415; 85610

== ENCOUNTER 2019-01-30 08:45 | Outpatient (CLI) | payer MEDICARE, BC, SELFPAY ==
[2019-01-30 12:38] LABS: INR 3.1 (0.9-1.1); Prothrombin Time 30.1 sec (9.3-11.0)
== END 2019-01-30 09:05 ==
PROVIDERS: PCP Emergency Medicine; Visit Provider Emergency Medicine
DX: I25.10 Atherosclerotic heart disease of native coronary artery without angina pectoris (principal); Z79.01 Long term (current) use of anticoagulants
CPT/HCPCS: 36415; 85610

== ENCOUNTER 2019-02-12 02:35 | Outpatient (CLI) | payer MEDICARE, BC, SELFPAY ==
[2019-02-12 12:18] LABS: INR 1.9 (0.9-1.1); Prothrombin Time 18.4 sec (9.3-11.0)
== END 2019-02-12 02:55 ==
PROVIDERS: PCP Emergency Medicine; Visit Provider Emergency Medicine
DX: I25.10 Atherosclerotic heart disease of native coronary artery without angina pectoris (principal); Z79.01 Long term (current) use of anticoagulants
CPT/HCPCS: 36415; 85610

== ENCOUNTER 2019-02-20 00:57 | Outpatient (CLI) | payer MEDICARE, BC, SELFPAY ==
[2019-02-20 13:11] LABS: INR 1.8 (0.9-1.1); Prothrombin Time 18.2 sec (9.3-11.0)
== END 2019-02-20 01:17 ==
PROVIDERS: PCP Emergency Medicine; Visit Provider Emergency Medicine
DX: I25.10 Atherosclerotic heart disease of native coronary artery without angina pectoris (principal); Z79.01 Long term (current) use of anticoagulants
CPT/HCPCS: 36415; 85610

== ENCOUNTER 2019-02-27 01:55 | Outpatient (CLI) | payer MEDICARE, BC, SELFPAY ==
[2019-02-27 13:43] LABS: Prothrombin Time 21.2 sec (9.3-11.0)
[2019-02-27 13:45] LABS: INR 2.1 (0.9-1.1)
== END 2019-02-27 02:15 ==
PROVIDERS: PCP Emergency Medicine; Visit Provider Emergency Medicine
DX: I25.10 Atherosclerotic heart disease of native coronary artery without angina pectoris (principal); Z79.01 Long term (current) use of anticoagulants
CPT/HCPCS: 36415; 85610

== ENCOUNTER 2019-03-05 15:59 | Outpatient (CLI) | payer MEDICARE, BC, SELFPAY ==
[2019-03-05 16:25] LABS: INR 2.8 (0.9-1.1)
== END 2019-03-05 16:19 ==
PROVIDERS: PCP Emergency Medicine; Visit Provider Emergency Medicine
DX: I25.10 Atherosclerotic heart disease of native coronary artery without angina pectoris (principal); Z79.01 Long term (current) use of anticoagulants
CPT/HCPCS: 36415; 85610

== ENCOUNTER 2019-03-20 08:26 | Outpatient (CLI) | payer MEDICARE, BC, SELFPAY ==
[2019-03-20 14:28] LABS: Prothrombin Time 29.3 sec (9.3-11.0)
== END 2019-03-20 08:46 ==
PROVIDERS: PCP Emergency Medicine; Visit Provider Emergency Medicine
DX: I25.10 Atherosclerotic heart disease of native coronary artery without angina pectoris (principal); Z79.01 Long term (current) use of anticoagulants
CPT/HCPCS: 36415; 85610

== ENCOUNTER 2019-04-03 01:28 | Outpatient (CLI) | payer MEDICARE, BC, SELFPAY ==
[2019-04-03 13:51] LABS: Abs Immature Grans 0.01 k/cumm (0.0-0.09); Absolute Basophil Count 0.02 k/cumm (0.0-0.2); Absolute Eosinophil Count 0.12 k/cumm (0.0-0.7); Absolute Lymphocyte Count 0.46 k/cumm (1.2-3.4); Absolute Monocyte Count 0.52 k/cumm (0.11-0.7); Absolute Neutrophil Count 2.58 k/cumm (1.2-6.7); Basophils % 0.5; Eosinophils % 3.2; HCT 28.8 % (40.0-50.0); HGB 8.7 g/dL (13.5-17.5); Immature Grans % 0.3; Lymphocytes % 12.4; Mean Corp. HGB Concentration 30.2 g/dL (32.0-36.0); Mean Corpuscular Hemoglobin 35.4 pg (27.0-33.0); Mean Corpuscular Volume 117.1 fL (80-95); Mean Platelet Volume 9.6 fL (8.0-11.0); Neutrophils % 69.6; Platelet Count 174 x1000/uL (130-400); RBC 2.46 m/cumm (4.50-6.00); RBC Distribution Width 17.5 % (11.8-14.1); White Blood Cell Count 3.71 k/cumm (4.4-10.8)
[2019-04-03 14:02] LABS: INR 2.7 (0.9-1.1); Prothrombin Time 26.3 sec (9.3-11.0)
[2019-04-03 14:06] LABS: Anisocytosis 2+; Diff Comment RBC Morph Reviewed; Hypochromasia 1+; Macrocytosis 3+; Ovalocytes 2+; Poikilocytes 1+; Polychromasia Present
== END 2019-04-03 01:48 ==
PROVIDERS: PCP Emergency Medicine; Visit Provider Emergency Medicine
DX: D64.9 Anemia, unspecified (principal); I25.10 Atherosclerotic heart disease of native coronary artery without angina pectoris; Z79.01 Long term (current) use of anticoagulants
CPT/HCPCS: 36415; 85025; 85610

== ENCOUNTER 2019-05-08 01:52 | Outpatient (CLI) | payer MEDICARE, BC, SELFPAY ==
[2019-05-08 13:57] LABS: INR 3.6 (0.9-1.1); Prothrombin Time 35.4 sec (9.3-11.0)
== END 2019-05-08 02:12 ==
PROVIDERS: PCP Emergency Medicine; Visit Provider Emergency Medicine
DX: I25.10 Atherosclerotic heart disease of native coronary artery without angina pectoris (principal); Z79.01 Long term (current) use of anticoagulants
CPT/HCPCS: 36415; 85610

== ENCOUNTER 2019-05-19 02:34 | Outpatient (CLI) | payer MEDICARE, BC, SELFPAY ==
[2019-05-19 10:45] LABS: INR 2.4 (0.9-1.1); Prothrombin Time 23.5 sec (9.3-11.0)
== END 2019-05-19 02:54 ==
PROVIDERS: PCP Emergency Medicine; Visit Provider Emergency Medicine
DX: I25.10 Atherosclerotic heart disease of native coronary artery without angina pectoris (principal); Z79.01 Long term (current) use of anticoagulants
CPT/HCPCS: 36415; 85610

== ENCOUNTER 2019-06-10 11:55 | Outpatient (CLI) | payer MEDICARE, BC, SELFPAY ==
[2019-06-10 13:53] LABS: INR 1.7 (0.9-1.1); Prothrombin Time 16.7 sec (9.3-11.0)
== END 2019-06-10 12:15 ==
PROVIDERS: PCP Emergency Medicine; Visit Provider Emergency Medicine
DX: I25.10 Atherosclerotic heart disease of native coronary artery without angina pectoris (principal); Z79.01 Long term (current) use of anticoagulants
CPT/HCPCS: 36415; 85610

== ENCOUNTER 2019-06-19 01:13 | Outpatient (CLI) | payer MEDICARE, BC, SELFPAY ==
[2019-06-19 11:45] LABS: INR 3.9 (0.9-1.1); Prothrombin Time 38.1 sec (9.3-11.0)
== END 2019-06-19 01:33 ==
PROVIDERS: PCP Emergency Medicine; Visit Provider Emergency Medicine
DX: I25.10 Atherosclerotic heart disease of native coronary artery without angina pectoris (principal); Z79.01 Long term (current) use of anticoagulants
CPT/HCPCS: 36415; 85610

== ENCOUNTER 2019-06-25 00:08 | Outpatient (CLI) | payer MEDICARE, BC, SELFPAY ==
[2019-06-25 13:55] LABS: INR 3.9 (0.9-1.1); Prothrombin Time 37.6 sec (9.3-11.0)
== END 2019-06-25 00:28 ==
PROVIDERS: PCP Emergency Medicine; Visit Provider Emergency Medicine
DX: I25.10 Atherosclerotic heart disease of native coronary artery without angina pectoris (principal); Z79.01 Long term (current) use of anticoagulants
CPT/HCPCS: 36415; 85610

== ENCOUNTER 2019-08-05 15:07 | Observation (INO) | payer MEDICARE, BC, SELFPAY ==
[2019-08-05] VITALS (35 sets, daily range): BP systolic 80–94; BP diastolic 36–70; PULSE 67–116; RESP 13–27; TEMP 36.6–37; O2SAT 95–100
--- NOTE | 2019-08-05 15:26 | ED.GENADUL_ITS ---
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 Also anticoagulated on Coumadin for history of atrial fibrillation. presented to the ED with a history of 3 days [employer], and several days of weakness. In ER findings of note for stable HCT and heme+ stool, with INR 3.3.. Case reviewed with GI, advise observation. Patient denies abd pain, non NSAIDs or EtOH. Discharge Instructions Instructions: Gastrointestinal Bleeding (DC) Additional Instructions: continue coumadin with INR goal 2.5-3.0. continue to monitor for and report signs of bleeding. Forms: Nursing Discharge Form Referrals: Devin Willard, [Primary Care Provider] - 08/13/19 1:20 pm (one week by phone) Discharge Data Discharge Date/Time-TO BE ENTERED AT DEPARTURE: 08/05/19 19:35 Medical Decision Making 1525 -- 74-year-old male with a history of end-stage renal disease on dialysis, coronary artery disease, GI bleed secondary to small bowel AVMs who presents for dark tarry stools for the past 3 days. Patient was seen here in the ED 1 year ago for GI bleed and transferred to [facility] due to his history of dialysis and was found to have small bowel AVMs on EGD. Blood pressure hypotensive on arrival, 80/52. Patient states he has a history of hypotension but states this is lower than usual. EKG notes a rate of 71, sinus with what appears to be a new left bundle branch block. Stool dark brown and guaiac positive. Abdomen nontender. We will check screening labs, coagulation studies, type and screen, and give Protonix and small bolus IV fluids. 1630 --labs and imaging reviewed. Hemoglobin 8.4, up trended from 8.2 two days ago. INR 3.3. K 3.1. Cr 2.54. Mg 1.4. Trop <0.05. WBC 3.38. CXR moderate patchy airspace disease or edema. Will call [facility] gastroenterology for transfer as patient is on dialysis. 1645 --d/w [facility] gastroenterology -as patient's hemoglobin is up trending in the setting of likely upper GI bleed, do not see an indication for emergent transfer as there would not be any plan for intervention at this time. Recommend admission here if possible for serial hemoglobins and continued observation. If any acute change, recommend transfer to [facility]. Patient's last dialysis was today and he does not appear fluid overloaded so likely can stay here for observation and plan for outpatient dialysis on Saturday. Pt improving and stable. 93/48. 1750 -- d/w hospitalist - accepts pt for admission. Medical Records Medical records reviewed: Yes I reviewed the patient's medical records. Imaging Data Radiologic Study: Radiologist's impression: XR Chest, 1 View Exam date and time: 08/05/2019 4:32 PM Age: 74 years old Clinical indication: Other: Hypotensive, anemic; Patient HX: Assess for pneumonia/chf TECHNIQUE: Imaging protocol: XR of the chest Views: 1 view. COMPARISON: CR XR CHEST 2V PA LATERAL 08/24/2018 11:00 AM FINDINGS: Tubes, catheters and devices: Right ICD device noted. Right central venous catheter tip at the SVC. Lungs: Moderate patchy airspace disease and/or edema throughout both lungs. Pleural space: Small bilateral pleural effusions. Heart/Mediastinum: Mild cardiomegaly. Bones/joints: Previous median sternotomy. IMPRESSION: 1. Right central venous catheter tip at the SVC. 2. Moderate patchy airspace disease and/or edema throughout both lungs. 3. Small bilateral pleural effusions. Lab Data Lab results reviewed: Yes I reviewed the patient's lab results. ECG Data Attestation: I personally reviewed and interpreted this ECG (s) as follows: Interpretation: rate of 71, sinus, LBBB, no acute ST elevation or depression. HPI General Mode of arrival: EMS . Date/Time Provider Initiated Documentation: 08/05/19 15:10 . Limitations to Documentation: no limitations . Information obtained by: patient . HPI Narrative: Patient is a 74-year-old male with history of end-stage renal disease on dialysis, coronary artery disease, GI bleed secondary to small bowel AVMs, hypertension, hyperlipidemia who presents to the ED with a complaint of black tarry stools for the past 4 days. He states he had a loose black tarry stool 4 days ago and more formed black tarry stools today. He denies any fever, cough, chest pain, shortness of breath, dizziness, nausea, vomiting or abdominal pain. Patient has a history of GI bleed 1 year ago and was transferred to [facility] and found to have small bowel AVMs on EGD but no acute bleeding. Patient takes Protonix. Patient receives dialysis Saturday and Saturday and had his last session this morning just prior to arrival. Related Data Home Medications Medication Instructions Recorded Confirmed cinacalcet [Sensipar] 30 mg PO DIRECTED 02/07/16 08/05/19 iron 18 mg IV INFUSION 02/07/16 08/05/19 Epogen 20,000 unit IJ given at dialysis 11/28/16 08/05/19 vial acetaminophen [Tylenol Extra 500 mg PO TID PRN 12/24/17 08/05/19 Strength] atorvastatin 40 mg tablet 40 mg PO DAILY #90 tab-cap 06/04/18 08/05/19 warfarin 2.5 mg tablet 2.5 - 7.5 mg PO DAILY #100 tab-cap 06/25/18 08/05/19 syringe with needle 3 mL 23 x 1 #50 each 10/08/18 06/23/19 pantoprazole 40 mg tablet,delayed 40 mg PO BID #180 tab-cap 10/21/18 08/05/19 release cyanocobalamin (vitamin B-12) 1,000 mcg IM QMONTH #25 ml 11/18/18 08/05/19 1,000 mcg/mL injection solution folic acid 1 mg tablet 1 mg PO DAILY #90 tab 12/30/18 08/05/19 metoprolol succinate 25 mg 25 mg PO DAILY #90 tab 01/21/19 08/05/19 tablet,extended release 24 hr Previous Rx's Medication Instructions Recorded atorvastatin 40 mg tablet 40 mg PO DAILY #90 tab-cap 06/04/18 warfarin 2.5 mg tablet 2.5 - 7.5 mg PO DAILY #100 tab-cap 06/25/18 syringe with needle 3 mL 23 x 1 #50 each 10/08/18 pantoprazole 40 mg tablet,delayed 40 mg PO BID #180 tab-cap 10/21/18 release cyanocobalamin (vitamin B-12) 1,000 mcg IM QMONTH #25 ml 11/18/18 1,000 mcg/mL injection solution folic acid 1 mg tablet 1 mg PO DAILY #90 tab 12/30/18 metoprolol succinate 25 mg 25 mg PO DAILY #90 tab 01/21/19 tablet,extended release 24 hr Allergies Allergy/AdvReac Type Severity Reaction Status Date / Time Penicillins Allergy Unknown Verified 08/05/19 15:39 General Stated Complaint: GI Bleed YOVANI: 2 Review of Systems All systems reviewed & are unremarkable except as noted in HPI and below Constitutional Constitutional: Reports as per HPI, Denies chills and Denies fever(s) Eyes Eyes: Denies blurry vision ENT Ears, Nose, Mouth, and Throat: Denies dizziness, Denies sore throat and Denies throat swelling Cardiovascular Cardiovascular: Denies chest pain and Denies dyspnea Respiratory Respiratory: Denies cough and Denies dyspnea Gastrointestinal Gastrointestinal: Denies abdominal pain, Reports melena, Denies diarrhea, Reports loose stools and Denies vomiting Genitourinary Genitourinary: Denies hematuria and Denies dysuria Musculoskeletal Musculoskeletal: Denies back pain and Denies numbness Integumentary/Breasts Skin/Breast: Denies lesions and Denies rash Neurologic Neurologic: Denies dizziness, Denies localized weakness and Denies numbness Allergic/Immunologic Allergic/Immunologic: Denies throat swelling COUNTS INCLUDE 234 BEDS AT THE [facility] Medical History Actinic keratosis (Chronic) Anemia due to vitamin B12 deficiency (Chronic 11/11/12) 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 Unstable angina. Multiple stents Atrial fibrillation (Chronic) B12 deficiency anemia (Chronic) Cardiac arrest (Chronic 11/05/17) due to hypotension during dialysis. Revived. CHF (congestive heart failure) (Chronic) Chronic anticoagulation (Acute) Chronic renal failure syndrome (Chronic 02/15/12) STAGE 4 dialysis Diastasis recti (Chronic) Diastasis recti (Chronic 12/15/13) ESRD (end stage renal disease) (Chronic 10/25/14) a. 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/26/15; [facility] LIKELY RELATED TO SLOW OOZING PREPYLORIC AVM'S Microscopic hematuria (Chronic) Microscopic hematuria (Chronic 04/04/99) neg W/U Near syncope (Chronic 10/25/14) Overweight (Chronic) Overweight (Chronic) PAF (paroxysmal atrial fibrillation) (Chronic) Pneumonia (Chronic) Postherpetic neuralgia (Chronic 10/25/14) Postherpetic neuralgia (Chronic) Renal failure syndrome (Chronic 01/09/12) Severe hypotension (Chronic 10/25/14) Shortness of breath (Chronic) Upper GI bleed (Chronic 02/01/15) endoscopy [facility] with laser treatment of stomach recurrent Vomiting (Chronic 10/25/14) Surgical History Cholecystectomy H/O surgical procedure (Chronic) a. AVR b. thoracic aneurysm repair c. CABG 03/2001 d. cholecystectomy History of aortic aneurysm repair (Acute) History of coronary artery bypass surgery (Acute) History of intravascular stent placement (Acute) Metallic aortic valve replacement during current hospitalization (Chronic 12/15/13) S/P AVR (aortic valve replacement) (Chronic) Status post cholecystectomy (Acute) Stent placement (~2001) X 2 Social History Smoking/Tobacco Use Status: Former Tobacco Use Alcohol Intake: former Drug use: Never Substance use type: does not use Do you feel safe at home: Yes Do you feel safe in your relationship?: Yes Exam Const General: cooperative, no acute distress and ill appearing chronically Orientation: alert, awake and oriented x3 HENMT Head: normal to inspection Face and sinus: normal facial exam Eyes General: appearance normal, both eyes and all related structures EOM: EOM intact bilaterally Neck Neck: normal visual inspection and No submandibular swelling Lymphatic: no lymphadenopathy noted Chest Chest: normal inspection of the chest and no tenderness Resp Effort & Inspection: normal respiratory effort and able to speak in complete sentences Auscultation: clear to auscultation bilaterally Cardio Rate: regular rate Rhythm: regular rhythm GI Inspection: normal to inspection Palpation: soft, not firm, not rigid and nontender Auscultation: normal bowel sounds Skin General skin exam: no rashes or lesions noted Neuro General: patient alert, patient awake and patient oriented x3 Cognition: normal cognition Speech: speech normal Motor: muscle tone normal throughout Sensory Exam: no sensory deficits noted Extrem General: normal to inspection, full ROM, capillary refill normal, no calf tenderness bilaterally and no edema Psych Appearance: grossly normal Mental Status: mental status grossly normal Speech and Movement: speech and movement normal Affect: normal affect Course Vital Signs Vital signs: Vital Signs Temperature 97.9 F 08/05/19 15:15 Pulse 73 08/05/19 15:15 Respiratory Rate 18 08/05/19 15:15 Blood Pressure 80/52 L 08/05/19 15:15 Pulse Oximetry 100 08/05/19 15:15 Temperature 97.9 F 08/05/19 15:15 Temperature Source Skin 08/05/19 15:15 Pulse 73 08/05/19 15:15 Respiratory Rate 18 08/05/19 15:15 Blood Pressure 80/52 L 08/05/19 15:15 Blood Pressure Position Sitting 08/05/19 15:15 Pulse Oximetry 100 08/05/19 15:15 Oxygen Delivery Method Nasal Cannula 08/05/19 15:15 Oxygen Flow Rate 2 08/05/19 15:15
[2019-08-05 15:35] LABS: Abs Immature Grans 0.01 k/cumm (0.0-0.09); Absolute Basophil Count 0.04 k/cumm (0.0-0.2); Absolute Eosinophil Count 0.17 k/cumm (0.0-0.7); Absolute Lymphocyte Count 0.53 k/cumm (1.2-3.4); Absolute Monocyte Count 0.52 k/cumm (0.11-0.7); Absolute Neutrophil Count 2.11 k/cumm (1.2-6.7); Basophils % 1.2; HCT 27.3 % (40.0-50.0); HGB 8.4 g/dL (13.5-17.5); Immature Grans % 0.3 %; Lymphocytes % 15.7; Mean Corp. HGB Concentration 30.8 g/dL (32.0-36.0); Mean Corpuscular Volume 120.3 fL (80-95); Mean Platelet Volume 10.8 fL (8.0-11.0); Monocytes % 15.4; Neutrophils % 62.4; Platelet Count 138 x1000/uL (130-400); RBC 2.27 m/cumm (4.50-6.00); RBC Distribution Width 18.7 % (11.8-14.1); White Blood Cell Count 3.38 k/cumm (4.4-10.8)
[2019-08-05 15:54] LABS: ALT 17 U/L (16-63); AST 32 U/L (15-37); Albumin 2.8 g/dL (3.4-5.0); Alkaline Phosphatase 138 U/L (46-116); BUN 14 mg/dL (7-18); Bilirubin, Total 0.5 mg/dL (0.2-1.0); CREATININE 2.54 mg/dL (0.70-1.30); Calcium 8.2 mg/dL (8.5-10.1); Chloride 98 mmol/L (98-107); Estimated GFR 24.84 (mL/min/1.73m2); Glucose 83 mg/dL (74-106); Magnesium 1.4 mg/dL (1.8-2.4); Potassium 3.1 mmol/L (3.5-5.1); Sodium 140 mmol/L (136-145); Total Protein 7.2 g/dL (6.4-8.2); Troponin I < 0.05 ng/Ml (<0.06)
[2019-08-05 15:55] LABS: Macrocytosis 2+
--- NOTE | 2019-08-05 16:15 | DI.RAD_ITS ---
EXAM: XR PORTABLE CHEST AP CLINICAL HISTORY: hypotensive, anemic, assess for pneumonia/chf COMPARISON: XR CHEST 2V PA LATERAL from 08/24/2018 FINDINGS: Portable AP chest at 1634 hours. Heart is enlarged and there are bilateral pleural effusions. There are bilateral intrapulmonary infiltrates, findings are consistent with pulmonary edema, superimposed pneumonia is not excluded on the basis of this examination. There is a central venous catheter in position with the tip of the catheter appearing to lie in the I VC. There is a cardiac pacemaker in position. Aortic valve prosthesis noted. IMPRESSION: CHF, superimposed pneumonia not excluded, appropriate follow-up films requested.
[2019-08-05 16:18] LABS: INR 3.3 (0.9-1.1); PTT Activated 72.2 sec (21.0-31.4); Prothrombin Time 31.9 sec (9.3-11.0)
--- NOTE | 2019-08-05 16:43 | DI.VRAD_ITS ---
PROCEDURE INFORMATION: Exam: XR Chest, 1 View Exam date and time: 08/05/2019 4:32 PM Age: 74 years old Clinical indication: Other: Hypotensive, anemic; Patient HX: Assess for pneumonia/chf TECHNIQUE: Imaging protocol: XR of the chest Views: 1 view. COMPARISON: CR XR CHEST 2V PA LATERAL 08/24/2018 11:00 AM FINDINGS: Tubes, catheters and devices: Right ICD device noted. Right central venous catheter tip at the SVC. Lungs: Moderate patchy airspace disease and/or edema throughout both lungs. Pleural space: Small bilateral pleural effusions. Heart/Mediastinum: Mild cardiomegaly. Bones/joints: Previous median sternotomy. IMPRESSION: 1. Right central venous catheter tip at the SVC. 2. Moderate patchy airspace disease and/or edema throughout both lungs. 3. Small bilateral pleural effusions. Dictated and Authenticated by: Zeferino Castro MD. Ordering:NILSA Wan MD
[2019-08-05] MEDS: Normal Saline Flush 10 ML SYR IVP ×2 (16:50→20:14)
[2019-08-05] MEDS: Pantoprazole 40 MG VIAL IVP ×2 (16:50→20:14)
[2019-08-05] MEDS: Normal Saline 250 ML IV (17:10)
--- NOTE | 2019-08-05 17:40 | HPE_ITS ---
Date of service: 08/05/19 Time of Service: 17:40 Assessment and Plan Assessment and plan (1) GI bleed: Status: Chronic Assessment and plan: GI bleed, apparently upper based on patient report. Hemodynamics at baseline as is HCT. Will continue PPI, hold Coumadin and track HCT. Will need EGD at some point. If proves to be recurrent small bowel AVM as source would consider estrogen therapy. 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 Also on Coumadin for AVR. 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 In ER findings of note for stable HCT and heme+ stool, with INR 3.3.. Case reviewed with GI, advise observation. Patient denies abd pain, non NSAIDs or EtOH. 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 Unstable angina. Multiple stents Atrial fibrillation (Chronic) B12 deficiency anemia (Chronic) Cardiac arrest (Chronic 11/05/17) due to hypotension during dialysis. Revived. CHF (congestive heart failure) (Chronic) Chronic anticoagulation (Acute) Chronic renal failure syndrome (Chronic 02/15/12) STAGE 4 dialysis Diastasis recti (Chronic) Diastasis recti (Chronic 12/15/13) ESRD (end stage renal disease) (Chronic 10/25/14) a. 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/26/15; [facility] LIKELY RELATED TO SLOW OOZING PREPYLORIC AVM'S Microscopic hematuria (Chronic) Microscopic hematuria (Chronic 04/04/99) neg W/U Near syncope (Chronic 10/25/14) Overweight (Chronic) Overweight (Chronic) PAF (paroxysmal atrial fibrillation) (Chronic) Pneumonia (Chronic) Postherpetic neuralgia (Chronic 10/25/14) Postherpetic neuralgia (Chronic) Renal failure syndrome (Chronic 01/09/12) Severe hypotension (Chronic 10/25/14) Shortness of breath (Chronic) Upper GI bleed (Chronic 02/01/15) endoscopy [facility] with laser treatment of stomach recurrent Vomiting (Chronic 10/25/14) Surgical History Cholecystectomy H/O surgical procedure (Chronic) a. AVR b. thoracic aneurysm repair c. CABG 03/2001 d. cholecystectomy History of aortic aneurysm repair (Acute) History of coronary artery bypass surgery (Acute) History of intravascular stent placement (Acute) Metallic aortic valve replacement during current hospitalization (Chronic 12/15/13) S/P AVR (aortic valve replacement) (Chronic) Status post cholecystectomy (Acute) Stent placement (~2001) X 2 Social History Smoking/Tobacco Use Status: Former Tobacco Use Alcohol Intake: former Drug use: Never Substance use type: does not use Do you feel safe at home: Yes Do you feel safe in your relationship?: Yes Meds Home Medications and Allergies Home Medications Medication Instructions Recorded Confirmed Type cinacalcet [Sensipar] 30 mg PO DIRECTED 02/07/16 08/05/19 History iron 18 mg IV INFUSION 02/07/16 08/05/19 History Epogen 20,000 unit IJ given at dialysis 11/28/16 08/05/19 History vial acetaminophen [Tylenol Extra 500 mg PO TID PRN 12/24/17 08/05/19 History Strength] atorvastatin 40 mg tablet 40 mg PO DAILY #90 tab-cap 06/04/18 08/05/19 Rx warfarin 2.5 mg tablet 2.5 - 7.5 mg PO DAILY #100 tab-cap 06/25/18 08/05/19 Rx syringe with needle 3 mL 23 x 1 #50 each 10/08/18 06/23/19 Rx pantoprazole 40 mg tablet,delayed 40 mg PO BID #180 tab-cap 10/21/18 08/05/19 Rx release cyanocobalamin (vitamin B-12) 1,000 mcg IM QMONTH #25 ml 11/18/18 08/05/19 Rx 1,000 mcg/mL injection solution folic acid 1 mg tablet 1 mg PO DAILY #90 tab 12/30/18 08/05/19 Rx metoprolol succinate 25 mg 25 mg PO DAILY #90 tab 01/21/19 08/05/19 Rx tablet,extended release 24 hr Allergies Allergy/AdvReac Type Severity Reaction Status Date / Time Penicillins Allergy Unknown Verified 08/05/19 15:39 Exam Narrative Exam Narrative: 94/39,70, 36.6, 21. HEENT unremarkable; lunjgs clear; heart RRR 2/6 sys murmur LUSB; abdomen soft and NT; extremities 1+ pedal edema Results Labs Result diagrams: 08/05/19 15:20 08/05/19 15:20 Labs: Laboratory Results - last 24 hr 08/05/19 08/05/19 08/05/19 15:20 15:20 15:20 WBC 3.38 L RBC 2.27 L Hgb 8.4 L Hct 27.3 L MCV 120.3 H MCH 37.0 H MCHC 30.8 L RDW 18.7 H Plt Count 138 MPV 10.8 Immature Gran % 0.3 Neutrophils % 62.4 Lymphocytes % 15.7 Monocytes % 15.4 Eosinophils % 5.0 Basophils % 1.2 Absolute Neutrophils 2.11 Absolute Lymphocytes 0.53 L Absolute Monocytes 0.52 Absolute Eosinophils 0.17 Absolute Basophils 0.04 RBC Morphology See below Macrocytosis 2+ Stomatocytes 2+ PT INR APTT Sodium 140 Potassium 3.1 L Chloride 98 Carbon Dioxide 36.0 H Anion Gap 6.0 BUN 14 Creatinine 2.54 H Estimated GFR/1.73 m2 24.84 Glucose 83 Calcium 8.2 L Magnesium 1.4 L Total Bilirubin 0.5 AST 32 ALT 17 Alkaline Phosphatase 138 H Troponin I < 0.05 Total Protein 7.2 Albumin 2.8 L Patient ABO/Rh O Positive Antibody Screen Negative 08/05/19 15:20 WBC RBC Hgb Hct MCV MCH MCHC RDW Plt Count MPV Immature Gran % Neutrophils % Lymphocytes % Monocytes % Eosinophils % Basophils % Absolute Neutrophils Absolute Lymphocytes Absolute Monocytes Absolute Eosinophils Absolute Basophils RBC Morphology Macrocytosis Stomatocytes PT 31.9 H INR 3.3 H APTT 72.2 H Sodium Potassium Chloride Carbon Dioxide Anion Gap BUN Creatinine Estimated GFR/1.73 m2 Glucose Calcium Magnesium Total Bilirubin AST ALT Alkaline Phosphatase Troponin I Total Protein Albumin Patient ABO/Rh Antibody Screen Last Vital Signs Temp 36.6 C 08/05/19 15:15 Pulse 69 08/05/19 17:04 Resp 21 08/05/19 17:30 BP 94/39 L 08/05/19 17:04 Pulse Ox 98 08/05/19 17:30 COVID-19 Screening Traveled to [place] from one of the affected countries or regions?: No Recent out of the country travel within the last 8 weeks?: No Exposure or possible exposure to illness during travel?: No Had IN PERSON contact w/suspected or confirmed C-19 person: No Have you had the following symptoms in the past few days?: No
[2019-08-05] MEDS: Melatonin 3 MG TAB PO (20:24)
[2019-08-05] MEDS: Acetaminophen 500 MG TAB PO (21:32)
[2019-08-06 00:13] VITALS: BP 104/54; PULSE 68; RESP 18; TEMP 36.8; O2SAT 95
[2019-08-06] MEDS: Acetaminophen 500 MG TAB PO (01:52)
[2019-08-06 06:56] LABS: HCT 28.3 % (40.0-50.0); HGB 8.8 g/dL (13.5-17.5)
[2019-08-06] MEDS: Normal Saline Flush 10 ML SYR IVP (07:09)
[2019-08-06] MEDS: Normal Saline 1,000 ML 50 ML IV (07:09)
[2019-08-06 07:10] LABS: INR 2.7 (0.9-1.1); Prothrombin Time 26.7 sec (9.3-11.0)
[2019-08-06] MEDS: Atorvastatin 40 MG TAB PO (08:11)
[2019-08-06] MEDS: Folic Acid 1 MG TAB PO (08:11)
[2019-08-06 08:20] VITALS: BP 95/51; PULSE 70; RESP 18; TEMP 36.1; O2SAT 100
--- NOTE | 2019-08-06 09:37 | SCONE_ITS ---
Date of service: 08/06/19 Time of Service: 09:37 Assessment and Plan Assessment and plan (1) GI bleed: Status: Chronic Assessment and plan: The patient has not had a BM since yesterday, which was a dark brown. It sounds like his stool was darker in appearance on Saturday. His HgB is stable. I do not think an urgent EGD is needed at this point. GI at [facility] was contacted by the ER and they advised observation. 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 I agree with the plan for repeat labs at noon with discharge if stable. With the patient's multiple medical problems and need for dialysis, any procedure would ideally be done at [facility] [place] [place]. History of Present Illness Narrative: This patient noted charcoal-like stools on Saturday and then had darker stools the next few days. Yesterday was dark brown. He denies abdominal pain and is eating normally. His history is significant for an prior GI bleed due to a small bowel AVM which was diagnosed at [facility] [place] [place]. The patient was found to be more anemic than usual while at dialysis yesterday and was sent to the hospital for evaluation. He has been admitted for observation per the advice of the GI service. Today he denies any symptoms and his HgB has gone from 8.4 to 8.8. 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 Unstable angina. Multiple stents Atrial fibrillation (Chronic) B12 deficiency anemia (Chronic) Cardiac arrest (Chronic 11/05/17) due to hypotension during dialysis. Revived. CHF (congestive heart failure) (Chronic) Chronic anticoagulation (Acute) Chronic renal failure syndrome (Chronic 02/15/12) STAGE 4 dialysis Diastasis recti (Chronic) Diastasis recti (Chronic 12/15/13) ESRD (end stage renal disease) (Chronic 10/25/14) a. 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/26/15; [facility] [place] [place] LIKELY RELATED TO SLOW OOZING PREPYLORIC AVM'S Microscopic hematuria (Chronic) Microscopic hematuria (Chronic 04/04/99) neg W/U Near syncope (Chronic 10/25/14) Overweight (Chronic) Overweight (Chronic) PAF (paroxysmal atrial fibrillation) (Chronic) Pneumonia (Chronic) Postherpetic neuralgia (Chronic 10/25/14) Postherpetic neuralgia (Chronic) Renal failure syndrome (Chronic 01/09/12) Severe hypotension (Chronic 10/25/14) Shortness of breath (Chronic) Upper GI bleed (Chronic 02/01/15) endoscopy [facility] [place] [place] with laser treatment of stomach recurrent Vomiting (Chronic 10/25/14) Surgical History Cholecystectomy H/O surgical procedure (Chronic) a. AVR b. thoracic aneurysm repair c. CABG 03/2001 d. cholecystectomy History of aortic aneurysm repair (Acute) History of coronary artery bypass surgery (Acute) History of intravascular stent placement (Acute) Metallic aortic valve replacement during current hospitalization (Chronic 12/15/13) S/P AVR (aortic valve replacement) (Chronic) Status post cholecystectomy (Acute) Stent placement (~2001) X 2 Social History Smoking/Tobacco Use Status: Former Tobacco Use Alcohol Intake: former Drug use: Never Substance use type: does not use Do you feel safe at home: Yes Do you feel safe in your relationship?: Yes Exam Narrative Exam Narrative: No acute distress Abdomen soft, non tender Results Last Vital Signs Temp 97.0 F L 08/06/19 08:20 Pulse 70 08/06/19 08:20 Resp 18 08/06/19 08:20 BP 95/51 L 08/06/19 08:20 Pulse Ox 100 08/06/19 08:20 Labs Result diagrams: 08/06/19 06:38 08/05/19 15:20 Labs: Laboratory Results - last 24 hr 08/05/19 08/05/19 08/05/19 15:20 15:20 15:20 WBC 3.38 L RBC 2.27 L Hgb 8.4 L Hct 27.3 L MCV 120.3 H MCH 37.0 H MCHC 30.8 L RDW 18.7 H Plt Count 138 MPV 10.8 Immature Gran % 0.3 Neutrophils % 62.4 Lymphocytes % 15.7 Monocytes % 15.4 Eosinophils % 5.0 Basophils % 1.2 Absolute Neutrophils 2.11 Absolute Lymphocytes 0.53 L Absolute Monocytes 0.52 Absolute Eosinophils 0.17 Absolute Basophils 0.04 RBC Morphology See below Macrocytosis 2+ Stomatocytes 2+ PT INR APTT Sodium 140 Potassium 3.1 L Chloride 98 Carbon Dioxide 36.0 H Anion Gap 6.0 BUN 14 Creatinine 2.54 H Estimated GFR/1.73 m2 24.84 Glucose 83 Calcium 8.2 L Magnesium 1.4 L Total Bilirubin 0.5 AST 32 ALT 17 Alkaline Phosphatase 138 H Troponin I < 0.05 Total Protein 7.2 Albumin 2.8 L Patient ABO/Rh O Positive Antibody Screen Negative 08/05/19 08/06/19 08/06/19 15:20 06:38 06:38 WBC RBC Hgb 8.8 L Hct 28.3 L MCV MCH MCHC RDW Plt Count MPV Immature Gran % Neutrophils % Lymphocytes % Monocytes % Eosinophils % Basophils % Absolute Neutrophils Absolute Lymphocytes Absolute Monocytes Absolute Eosinophils Absolute Basophils RBC Morphology Macrocytosis Stomatocytes PT 31.9 H 26.7 H INR 3.3 H 2.7 H D APTT 72.2 H Sodium Potassium Chloride Carbon Dioxide Anion Gap BUN Creatinine Estimated GFR/1.73 m2 Glucose Calcium Magnesium Total Bilirubin AST ALT Alkaline Phosphatase Troponin I Total Protein Albumin Patient ABO/Rh Antibody Screen
[2019-08-06 12:07] LABS: HCT 29.8 % (40.0-50.0); HGB 8.9 g/dL (13.5-17.5)
--- NOTE | 2019-08-06 12:49 | W.PM.DS.N ---
Date of service: 08/06/19 Time of Service: 12:49 DS: Diagnosis Discharge Diagnosis (1) GI bleed: Status: Chronic Discharge Plan Disposition Patient Disposition: HOME Condition: Stable Discharge Details Chief Complaint: GI Bleed Clinical Impression: GI bleed, Hypotension, Anticoagulated on Coumadin, Anemia Reason For Visit: GI BLEED Admit Date/Time: 08/05/19 17:50 Admit Provider: Zeferino Ortiz Attending Provider: Shawn Tran Primary Care Provider: Devin Willard ED Provider: Soco Heck Hospital Course Hospital Course: this is a 74 male with CRF on HD (last today), h/o UGI bleed due to small bowel AVM . Also anticoagulated on Coumadin for history of atrial fibrillation. presented to the ED with a history of 3 days [employer], and several days of weakness. In ER findings of note for stable HCT and heme+ stool, with INR 3.3.. Case reviewed with GI, advise observation. Patient denies abd pain, non NSAIDs or EtOH. Home Meds and New Rx's Prescriptions: Continued cyanocobalamin (vitamin B-12) 1,000 mcg/mL solution 1,000 mcg IM QMONTH Qty: 25 RF: 12 metoprolol succinate 25 mg tablet extended release 24 hr 25 mg PO DAILY Qty: 90 RF: 3 iron 18 MG tablet 18 mg IV INFUSION RF: 0 cinacalcet [Sensipar] 30 MG tablet 30 mg PO DIRECTED RF: 0 Epogen 20,000 UNIT/1 ML solution 20,000 unit IJ given at dialysis RF: 0 acetaminophen [Tylenol Extra Strength] 500 MG tablet 500 mg PO TID PRN RF: 0 atorvastatin 40 mg tablet 40 mg PO DAILY Qty: 90 RF: 3 warfarin 2.5 mg tablet 2.5 - 7.5 mg PO DAILY Qty: 100 RF: 6 (DME) BD Eclipse Luer-Pastor 3 mL 23 x 1 syringe See Dose Instructions .ROUTE .MEDSUPPLY Qty: 50 RF: 1 pantoprazole 40 mg tablet,delayed release (DR/EC) 40 mg PO BID Qty: 180 RF: 3 folic acid 1 mg tablet 1 mg PO DAILY Qty: 90 RF: 3 Discharge Instructions Instructions: Gastrointestinal Bleeding (DC) Additional Instructions: continue coumadin with INR goal 2.5-3.0. continue to monitor for and report signs of bleeding. Stand Alone Forms: Nursing Discharge Form Referrals: Devin Willard DO [Primary Care Provider] - 08/13/19 1:20 pm (one week by phone) Activity:: Activity as Tolerated Equipment/Supplies:: No Equipment Needed Diet:: renal diet Discharge Orders Discharge Orders: Discharge Order (Routine); Ordered 08/06/19 Ordered By: Adina Nelson Discharge Data Discharge Date/Time-TO BE ENTERED AT DEPARTURE: 08/06/19 15:14 DS: Summary Status at Discharge Functional status at discharge: independent ambulation Overall status at discharge: patient is progressing back to baseline Mental Status: mental status grossly normal Speech and Movement: speech and movement normal Mood: congruent mood Affect: normal affect Exam Psych Mental Status: mental status grossly normal Speech and Movement: speech and movement normal Mood: congruent mood Affect: normal affect DS: Data Vitals/I&O Vitals and I&O: Vital Signs Temperature 36.1 C L 08/06/19 08:20 Temperature Source Tympanic 08/06/19 08:20 Pulse 70 08/06/19 08:20 Pulse Rhythm Regular 08/06/19 08:25 Pulse 70 08/05/19 18:31 Respiratory Rate 18 08/06/19 08:20 Respiratory Effort Non-Labored 08/06/19 08:25 Respiratory Depth Normal 08/06/19 08:25 Respiratory Pattern Normal 08/06/19 08:25 Blood Pressure 95/51 L 08/06/19 08:20 Blood Pressure Mean 74 08/05/19 18:30 Blood Pressure Position Sitting 08/05/19 15:15 Pulse Oximetry 100 08/06/19 08:20 Oxygen Delivery Method Nasal Cannula 08/06/19 08:20 Oxygen Flow Rate 3 08/06/19 08:20 Pain Level 5 08/06/19 08:20 Intake & Output 08/05/19 08/06/19 08/06/19 23:59 11:59 23:59 Intake Total 250 / 250 472.5 / 472.5 Balance 250 / 250 472.5 / 472.5 Weight 92.986 kg Intake: IV 250 / 250 112.5 / 112.5 Oral 360 / 360 Other: Emesis Description Bile Data Completed and Pending Labs on day of discharge: Labs from last 24 hours 08/06/19 08/06/19 08/06/19 12:00 06:38 06:38 WBC RBC Hgb 8.9 L 8.8 L Hct 29.8 L 28.3 L MCV MCH MCHC RDW Plt Count MPV Immature Gran % Neutrophils % Lymphocytes % Monocytes % Eosinophils % Basophils % Absolute Neutrophils Absolute Lymphocytes Absolute Monocytes Absolute Eosinophils Absolute Basophils RBC Morphology Macrocytosis Stomatocytes PT 26.7 H INR 2.7 H D APTT Sodium Potassium Chloride Carbon Dioxide Anion Gap BUN Creatinine Estimated GFR/1.73 m2 Glucose Calcium Magnesium Total Bilirubin AST ALT Alkaline Phosphatase Troponin I Total Protein Albumin Pathology Consult Spec Patient ABO/Rh Antibody Screen 08/05/19 08/05/19 08/05/19 15:20 15:20 15:20 WBC 3.38 L RBC 2.27 L Hgb 8.4 L Hct 27.3 L MCV 120.3 H MCH 37.0 H MCHC 30.8 L RDW 18.7 H Plt Count 138 MPV 10.8 Immature Gran % 0.3 Neutrophils % 62.4 Lymphocytes % 15.7 Monocytes % 15.4 Eosinophils % 5.0 Basophils % 1.2 Absolute Neutrophils 2.11 Absolute Lymphocytes 0.53 L Absolute Monocytes 0.52 Absolute Eosinophils 0.17 Absolute Basophils 0.04 RBC Morphology See below Macrocytosis 2+ Stomatocytes 2+ PT 31.9 H INR 3.3 H APTT 72.2 H Sodium Potassium Chloride Carbon Dioxide Anion Gap BUN Creatinine Estimated GFR/1.73 m2 Glucose Calcium Magnesium Total Bilirubin AST ALT Alkaline Phosphatase Troponin I Total Protein Albumin Pathology Consult Spec Pending Patient ABO/Rh O Positive Antibody Screen Negative 08/05/19 15:20 WBC RBC Hgb Hct MCV MCH MCHC RDW Plt Count MPV Immature Gran % Neutrophils % Lymphocytes % Monocytes % Eosinophils % Basophils % Absolute Neutrophils Absolute Lymphocytes Absolute Monocytes Absolute Eosinophils Absolute Basophils RBC Morphology Macrocytosis Stomatocytes PT INR APTT Sodium 140 Potassium 3.1 L Chloride 98 Carbon Dioxide 36.0 H Anion Gap 6.0 BUN 14 Creatinine 2.54 H Estimated GFR/1.73 m2 24.84 Glucose 83 Calcium 8.2 L Magnesium 1.4 L Total Bilirubin 0.5 AST 32 ALT 17 Alkaline Phosphatase 138 H Troponin I < 0.05 Total Protein 7.2 Albumin 2.8 L Pathology Consult Spec Patient ABO/Rh Antibody Screen [facility] Medical History Actinic keratosis (Chronic) Anemia due to vitamin B12 deficiency (Chronic 11/11/12) 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 Unstable angina. Multiple stents Atrial fibrillation (Chronic) B12 deficiency anemia (Chronic) Cardiac arrest (Chronic 11/05/17) due to hypotension during dialysis. Revived. CHF (congestive heart failure) (Chronic) Chronic anticoagulation (Acute) Chronic renal failure syndrome (Chronic 02/15/12) STAGE 4 dialysis Diastasis recti (Chronic) Diastasis recti (Chronic 12/15/13) ESRD (end stage renal disease) (Chronic 10/25/14) a. 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/26/15; [facility] [place] LIKELY RELATED TO SLOW OOZING PREPYLORIC AVM'S Microscopic hematuria (Chronic) Microscopic hematuria (Chronic 04/04/99) neg W/U Near syncope (Chronic 10/25/14) Overweight (Chronic) Overweight (Chronic) PAF (paroxysmal atrial fibrillation) (Chronic) Pneumonia (Chronic) Postherpetic neuralgia (Chronic 10/25/14) Postherpetic neuralgia (Chronic) Renal failure syndrome (Chronic 01/09/12) Severe hypotension (Chronic 10/25/14) Shortness of breath (Chronic) Upper GI bleed (Chronic 02/01/15) endoscopy [facility] [place] with laser treatment of stomach recurrent Vomiting (Chronic 10/25/14) Surgical History Cholecystectomy H/O surgical procedure (Chronic) a. AVR b. thoracic aneurysm repair c. CABG 03/2001 d. cholecystectomy History of aortic aneurysm repair (Acute) History of coronary artery bypass surgery (Acute) History of intravascular stent placement (Acute) Metallic aortic valve replacement during current hospitalization (Chronic 12/15/13) S/P AVR (aortic valve replacement) (Chronic) Status post cholecystectomy (Acute) Stent placement (~2001) X 2 Social History Smoking/Tobacco Use Status: Former Tobacco Use Alcohol Intake: former Drug use: Never Substance use type: does not use Do you feel safe at home: Yes Do you feel safe in your relationship?: Yes
--- NOTE | 2019-08-06 15:13 | PDOC.CMDIS ---
- If Service Date Differs Date of service: 08/06/19 Time of Service: 15:13 LACE Index Scoring Tool - Questions: Length of Stay (in days): 1 Acuity (Admit via E.D.?): Yes Comorbidities: Congestive Heart Failure, Liver or Renal Disease E.D. Visits: 2 - Answers: Total Score: 11 Risk of Readmission: High Risk Care Management Discharge Reason for Hospitalization: GI Bleed Discharge Plan: Barry will be discharged home with no new services. He will resume Meals on Wheels and home health nursing. Barry will transport via private vehicle with his niece Siria and follow up with his PCP. Patient/Family Education Needs: Discharge plan, limitations, follow up plan, Ask Me Three.
--- NOTE | 2019-08-06 15:29 | PDOC.CMIN ---
- If Service Date Differs Date of service: 08/06/19 Time of Service: 15:29 Care Management Initial Assess REASON FOR HOSPITALIZATION:: GI Bleed PAST MEDICAL HISTORY/PAST SURGICAL HISTORY:: Medical History . Actinic keratosis (Chronic). Anemia due to vitamin B12 deficiency (Chronic 11/11/12). 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 Angiodysplasia of gastrointestinal tract (Chronic). Anticoagulant long-term use (Chronic). Anticoagulated on warfarin (Chronic). CABG AVR; goal 2.5-3.5. Aortic aneurysm (Chronic). 01/2012- 2.8 CM. Atherosclerosis of coronary artery bypass graft (Chronic 04/04/01). 2017 SOB due to diastolic failure. 2018 CHF. Unstable angina. Multiple stents. Atrial fibrillation (Chronic). B12 deficiency anemia (Chronic). Cardiac arrest (Chronic 11/05/17). due to hypotension during dialysis. Revived. CHF (congestive heart failure) (Chronic). Chronic anticoagulation (Acute). Chronic renal failure syndrome (Chronic 02/15/12). STAGE 4. dialysis. Diastasis recti (Chronic). Diastasis recti (Chronic 12/15/13). ESRD (end stage renal disease) (Chronic 10/25/14). a. on dialysis since 09/2013. Essential hypertension (Chronic 04/13/13). Herpes zoster (Chronic). Hiatal hernia (Chronic). Hiatal hernia (Chronic). History of tobacco use (Chronic). History of tobacco use (Chronic). Hypertension (Chronic). Hypoxia (Chronic). Incontinence of feces (Chronic). 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 Macrocytosis (Chronic). Mantoux: positive (Chronic). 01/26/15; [facility] [place]KELY RELATED TO SLOW OOZING PREPYLORIC AVM'S. Microscopic hematuria (Chronic). Microscopic hematuria (Chronic 04/04/99). neg W/U. Near syncope (Chronic 10/25/14). Overweight (Chronic). Overweight (Chronic). PAF (paroxysmal atrial fibrillation) (Chronic). Pneumonia (Chronic). Postherpetic neuralgia (Chronic 10/25/14). Postherpetic neuralgia (Chronic). Renal failure syndrome (Chronic 01/09/12). Severe hypotension (Chronic 10/25/14). Shortness of breath (Chronic). Upper GI bleed (Chronic 02/01/15). endoscopy [facility] [place] with laser treatment of stomach. recurrent. Vomiting (Chronic 10/25/14). Surgical History . Cholecystectomy. H/O surgical procedure (Chronic). a. AVR. b. thoracic aneurysm repair. c. CABG 03/2001. d. cholecystectomy. History of aortic aneurysm repair (Acute). History of coronary artery bypass surgery (Acute). History of intravascular stent placement (Acute). Metallic aortic valve replacement during current hospitalization (Chronic 12/15/13). S/P AVR (aortic valve replacement) (Chronic). Status post cholecystectomy (Acute). Stent placement (~2001). X 2 PREVIOUS FUNCTIONAL STATUS/SOCIAL/FAMILY SUPPORTS:: Barry lives with his in a single family home in [facility]. Barry's Laura has severe dementia and Barry cares for her. They have 2 sons, both of whom live out of state. Barry has end stage renal disease and receives dialysis treatments 3 times a week. He is disabled due to a back injury and uses a walker to get around. Barry and Laura have just started receiving Meals On Wheels. CURRENT FUNCTIONAL STATUS:: Barry was sitting up in a chair when CM met with him. He shared details about his 's dementia and his declining health and stated that he never thought life would end up like this. He did say he retired and had a few good years before he needed dislysis. His developed dementia 2 years ago and Barry stated that it has progressed really rapidly in the past year. He shared that he has 4 grandchildren and they mean the world to him. They are why I get out of bed every day. ADVANCE DIRECTIVES:: COLST form on file Has patient been provided with information about the portal?: No Did the patient sign up for the portal?: No CODE STATUS:: Full Code INSURANCE COVERAGE / FINANCIAL ISSUES:: Medicare. BC BS CURRENT HOME/COMMUNITY SERVICES/EQUIPMENT:: [employer] Whe[employer]. Home health nursing. Barry uses a walker PRIMARY CARE PHYSICIAN:: Devin Willard PATIENT/FAMILY EDUCATION NEEDS:: Discharge plan, limitations, follow up plan, Ask Me Three TRANSPORTATION:: via private vehicle with niece PLAN:: Barry will be discharged home with no new services. He will resume Meals on Wheels and home health nursing. Barry will transport via private vehicle with his niece Siria and follow up with his PCP.
--- NOTE | 2019-08-06 16:52 | CHAPLAIN ---
Barry was sitting up in his bed when I visited. He back was painful to him at times. He told me about going to dialysis three times a week. His , Laura, has dementia and goes to [facility] on the days that Barry has dialysis, so he has a few hours to himself after dialysis on those days. A friend also takes her to taoism on Saturday mornings. 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 Her dementia has worsened the last two years according to Barry. He is worried about financially covering the expense of [employer] after a while and recently signed up for Me[employer] on Wheels as cooking became more difficult for him. Barry and Laura's sons live out of town, one [place] and one in [place].
[2019-08-08 08:03] LABS: Anisocytosis 2+; Diff Comment RBC Morph Reviewed; Hypochromasia 1+; Polychromasia Present
[2019-08-08 08:04] LABS: Poikilocytes 1+
== END 2019-08-06 15:14 | disposition home or self-care (01) ==
LOC: ER 18:08 → MS 19:36
PROVIDERS: Admitting Provider General Practice; Emergency Provider Physician Assistant; PCP Emergency Medicine; Visit Provider Internal Medicine
DX: K92.2 Gastrointestinal hemorrhage, unspecified (principal); Z79.01 Long term (current) use of anticoagulants; I95.9 Hypotension, unspecified; D64.9 Anemia, unspecified; N18.6 End stage renal disease; Z99.2 Dependence on renal dialysis; I12.0 Hypertensive chronic kidney disease with stage 5 chronic kidney disease or end stage renal disease; I48.0 Paroxysmal atrial fibrillation
CPT/HCPCS: 36415; 80053; 86850; 86900; 86901; 93005; 96361; 96374; 99213; 99217; 99222; 99252; 99285; 71045; 83735; 84484; 85014; 85018; 85025; 85610; 85730; 86902; 93010; 99218; 99284; G0378